=== PATIENT | female | born 1985 | race Caucasian/White ===

== ENCOUNTER 2016-11-14 08:07 | Day surgery (SDC) | payer BC, OTHER ==
[2012-04-15 15:09] VITALS: BP 114/68
[~2016-11-14 08:07] MED LIST: Depo-Medrol 40 MG/ML IM ONE; Lactated Ringers 1,000 ML IV ONE; Levofloxacin 500MG/100ML D5W 100 ML IV ONE; Sensorcaine 0.25% 10 ML IJ ONE; Sodium Chloride 0.9(Preservative Free) 10 ML IJ ONE
[2016-11-14] MEDS ORDERED: DIPRIVAN 200 MG/20 ML IV ONE (09:00)
--- NOTE | 2016-11-14 11:16 | XRAY ---
Indication: Caudal FLOR. Intraoperative fluoroscopy was provided for 14 seconds. 2 lateral digital spot images submitted for interpretation demonstrates contrast in the sacral spinal canal. Correlate with intraoperative findings/report.
--- NOTE | 2016-11-14 14:56 | XRAY ---
14 seconds fluoroscopy time in surgery for caudal FLOR.
== END 2016-11-14 10:10 | disposition home or self-care (01) ==
LOC: SDC-PAIN 08:07 → EDSTATUS 09:40 → SDC-PAIN 10:10
PROVIDERS: ATTEND Pain Medicine Interventional Pain Medicine
DX: M51.36 Other intervertebral disc degeneration, lumbar region (principal); M51.16 Intervertebral disc disorders with radiculopathy, lumbar region; M54.5 Low back pain; M54.6 Pain in thoracic spine
CPT/HCPCS: 64483; 64484; 72020; 77003; J1030; J1956; J2704

== ENCOUNTER 2017-01-01 10:55 | Emergency (ER) | payer BC, OTHER ==
[2017-01-01 11:52] VITALS: O2SAT 99
--- NOTE | 2017-01-01 12:01 | ERPHSYRPT ---
- History of Present Illness Time Seen by Provider: 01/01/17 11:54 Source: patient Exam Limitations: no limitations Patient Subjective Stated Complaint: PT REPORTS THAT LAST NIGHT SHE FELT HER HEART BEATING FAST-WOULD STOP WHEN SHE HELD BREATH-STATES THAT THIS AM SHE WOKE UP FEELING [id number] Triage Nursing Assessment: PT PALE WARME T DRY-RESP NONLABORED UPON ARRIVAL- LUNGS CLEAR ET EQUAL BILATERALLY-MOVING ALL EXTEMTIES WITH EASE-PT REPORTS TOES ARE NUMB-FULL ROM NOTED Physician History: The patient is a 31-year-old female complains that she was not feeling well last night. She states her heart was beating rapidly but then it was slow down. Today she feels weak. At times she feels like going to pass out. She says she is going to vomit but she is not nauseated. She says she sweaty. And then she is chilled. She says "I don't feel good". She states she had a panic attack 2 days ago. Her past medical history is significant for anxiety, depression, PTSD, and fibromyalgia. Timing/Duration: yesterday Severity: moderate Associated Symptoms: nausea, diaphoresis, weakness Allergies/Adverse Reactions: buspirone HCl [From BuSpar] Allergy (Mild, Verified 01/01/17 11:15) rash hives cefaclor [From Ceclor] Allergy (Mild, Verified 01/01/17 11:15) rash hives latex [Latex] Allergy (Mild, Verified 01/01/17 11:15) redness and swollen azatadine maleate [From Rynatan] Allergy (Verified 01/01/17 11:15) rash hives chlorpheniramine [From Rynatan] Allergy (Verified 01/01/17 11:15) chlorpheniramine tannate [From Rynatan] Allergy (Verified 01/01/17 11:15) phenylephrine tannate [From Rynatan] Allergy (Verified 01/01/17 11:15) pseudoephedrine sulfate [From Rynatan] Allergy (Verified 01/01/17 11:15) pyrilamine tannate [From Rynatan] Allergy (Verified 01/01/17 11:15) venlafaxine [From Effexor] Allergy (Verified 01/01/17 11:15) Home Medications: Multivitamin [Multivitamins] 2 each PO DAILY 03/07/16 [History] Ascorbic Acid 500 mg [Vitamin C 500 MG] 500 mg PO DAILY 08/22/16 [History] Cholecalciferol (Vitamin D3) [Vitamin D-400] 400 unit PO DAILY 08/22/16 [History ] Cyanocobalamin (Vitamin B-12) [Vitamin B-12] 1,500 mcg PO DAILY 08/22/16 [ History] Gabapentin [Neurontin] 300 mg PO .AM AND NOON 08/22/16 [History] Magnesium 500 mg PO DAILY 08/22/16 [History] Methocarbamol 500 mg [Robaxin 500 MG] 500 mg PO HS 08/22/16 [History] [place]-3 Fatty Acids/Fish Oil [Fish Oil 1,000 mg Softgel] 1 each PO DAILY [History] Paroxetine HCl [Paxil] 20 mg PO DAILY 08/22/16 [History] Gabapentin [Neurontin] 900 mg PO HS 11/27/16 [History] Hx Tetanus, Diphtheria Vaccination/Date Given: Yes Hx Influenza Vaccination/Date Given: No Hx Pneumococcal Vaccination/Date Given: No Immunizations Up to Date: Yes - Review of Systems Constitutional: No Fever, No Chills Eyes: No Symptoms Ears, Nose, & Throat: No Symptoms Respiratory: No Cough, No Dyspnea Cardiac: Palpitations Abdominal/Gastrointestinal: No Abdominal Pain, No Nausea, No Vomiting, No Diarrhea Genitourinary Symptoms: No Dysuria Musculoskeletal: No Back Pain, No Neck Pain Skin: No Rash Neurological: No Dizziness, No Focal Weakness, No Sensory Changes Psychological: No Symptoms Endocrine: No Symptoms Hematologic/Lymphatic: No Symptoms Immunological/Allergic: No Symptoms All Other Systems: Reviewed and Negative - Past Medical History Pertinent Past Medical History: Yes Neurological History: Migraines ENT History: No Pertinent History Cardiac History: No Pertinent History Respiratory History: No Pertinent History Endocrine Medical History: No Pertinent History Musculoskeletal History: Other GI Medical History: No Pertinent History History: No Pertinent History Psycho-Social History: Anxiety, Depression, Panic Disorder, Other Female Reproductive Disorders: No Pertinent History Other Medical History: SCOLIOSIS - Past Surgical History Past Surgical History: Yes Neuro Surgical History: No Pertinent History Cardiac: No Pertinent History Respiratory: No Pertinent History Gastrointestinal: Cholecystectomy Genitourinary: No Pertinent History Musculoskeletal: No Pertinent History Female Surgical History: Section, Tubal Ligation, Other Other Surgical History: LEEP - Social History Smoking Status: Current every day smoker How long have you smoked: 10 yrs Exposure to second hand smoke: Yes Drug Use: none Patient Lives Alone: No - Female History Hx Last Menstrual Period: DEPO Hx Now: No (pt unsure) - Nursing Vital Signs Nursing Vital Signs: Initial Vital Signs Temperature 99.4 F Temperature Source Oral Pulse Rate 80 Respiratory Rate 16 Blood Pressure [Right Arm] 118/81 Pain Intensity 0 - Physical Exam General Appearance: no apparent distress, alert Eye Exam: PERRL/EOMI, eyes nml inspection Ears, Nose, Throat Exam: normal ENT inspection, TMs normal, pharynx normal, moist mucous membranes Neck Exam: normal inspection, non-tender, supple, full range of motion Respiratory Exam: normal breath sounds, lungs clear, No respiratory distress Cardiovascular Exam: tachycardia, irregular Gastrointestinal/Abdomen Exam: soft, normal bowel sounds, No tenderness, No mass Pelvic Exam: not done Rectal Exam: not done Back Exam: normal inspection, normal range of motion, No CVA tenderness, No vertebral tenderness Neurologic Exam: alert, oriented x 3, cooperative, normal mood/affect, nml cerebellar function, nml station & gait, sensation nml, No motor deficits Skin Exam: diaphoresis Lymphatic Exam: No adenopathy SpO2 Interpretation: normal SpO2: 99 Oxygen Delivery: Room Air - Course EKG Interpreted by Me: Sinus Rhythm, NORMAL AXIS, NORMAL INTERVALS, NORMAL QRS, NORMAL ST-T - Radiology Exams Chest X-ray Interpretation: Teleradiologist Report, Negative (per Dr Chris) Ordered Tests: Active Orders 24 hr Category Date Time Status EKG-ER Only STAT Care 01/01/17 12:05 Active IV Insertion STAT Care 01/01/17 12:05 Active CHEST 2 VIEWS (PA AND LAT) Stat Exams 01/01/17 12:06 Completed CBC W DIFF Stat Lab 01/01/17 12:14 Completed CMP Stat Lab 01/01/17 12:14 Completed CULTURE,URINE Stat Lab 01/01/17 12:05 Received HCG QUALITATIVE,SERUM Stat Lab 01/01/17 12:14 Completed LIPASE Stat Lab 01/01/17 12:14 Completed TROPONIN Stat Lab 01/01/17 12:14 Completed TSH [TSH, 3RD Generation] Stat Lab 01/01/17 12:14 Completed UA W/ MICROSCOPIC Stat Lab 01/01/17 12:05 Completed Urine Triage Profile Stat Lab 01/01/17 12:05 Completed Medication Summary Discontinued Medications Generic Name Dose Route Start Last Admin Trade Name Jessica PRN Reason Stop Dose Admin Acetaminophen 650 mg 01/01/17 12:05 01/01/17 12:16 Tylenol 325 Mg PO 01/01/17 12:06 650 mg STAT ONE Administration Acetaminophen Confirm 01/01/17 12:13 Tylenol 325 Mg Administered 01/01/17 12:14 Dose 650 mg .ROUTE .STK-MED ONE Sodium Chloride 1,000 mls @ 999 mls/hr 01/01/17 12:05 01/01/17 12:16 Sodium Chloride 0.9% 1000 Ml IV 01/01/17 13:05 999 mls/hr .Q1H1M STA Administration Sodium Chloride Confirm 01/01/17 12:06 Sodium Chloride 0.9% 1000 Ml Administered 01/01/17 12:07 Dose 1,000 mls @ ud .ROUTE .STK-MED ONE Ketorolac Tromethamine 30 mg 01/01/17 12:05 01/01/17 12:16 Toradol 30 Mg Injection IV 01/01/17 12:06 30 mg STAT ONE Administration Ketorolac Tromethamine Confirm 01/01/17 12:13 Toradol 30 Mg Injection Administered 01/01/17 12:14 Dose 30 mg .ROUTE .STK-MED ONE Ondansetron HCl Confirm 01/01/17 12:06 Zofran 4 Mg/2 Ml Vial Administered 01/01/17 12:07 Dose 4 mg .ROUTE .STK-MED ONE Ondansetron HCl 4 mg 01/01/17 12:13 01/01/17 12:16 Zofran 4 Mg/2 Ml Vial IV 01/01/17 12:14 4 mg STAT ONE Administration Promethazine HCl 12.5 mg 01/01/17 13:17 01/01/17 13:18 Phenergan 25 Mg Inj IV 01/01/17 13:18 12.5 mg STAT ONE Administration Promethazine HCl Confirm 01/01/17 13:16 Phenergan 25 Mg Inj Administered 01/01/17 13:17 Dose 25 mg .ROUTE .STK-MED ONE Lab/Rad Data: Laboratory Result Diagrams 01/01/17 12:14 01/01/17 12:14 Laboratory Results 01/01/17 01/01/17 01/01/17 Range/Units 12:14 12:14 12:14 WBC (4.0-10.5) K/mm3 RBC (4.1-5.4) M/mm3 Hgb (12.0-16.0) gm/dl Hct (35-47) % MCV (78-100) fl MCH (26-32) pg MCHC (32-36) g/dl RDW (11.5-14.0) % Plt Count (150-450) K/mm3 MPV (6-9.5) fl Gran % (36.0-66.0) % Lymphocytes % (24.0-44.0) % Monocytes % (0.0-12.0) % Eosinophils % (0.00-5.0) % Basophils % (0.0-0.4) % Basophils # (0-0.4) Sodium 143 (136-145) mEq/L Potassium 3.7 (3.5-5.1) mEq/L Chloride 108 H (98-107) mEq/L Carbon Dioxide 22.6 (21-32) mEq/L Anion Gap 15.6 H (5-15) MEQ/L BUN 12 (9-20) mg/dL Creatinine 0.79 (0.55-1.30) mg/dl Estimated GFR > 60 ML/MIN Glucose 93 (70-110) MG/DL Calcium 8.9 (8.5-10.1) mg/dL Total Bilirubin 0.30 (0.2-1.0) mg/dL AST 18 (15-37) U/L ALT 16 (12-78) U/L Alkaline Phosphatase 66 (46-116) U/L Troponin I < 0.017 (0.000-0.056) ng/ml Serum Total Protein 7.3 (6.4-8.2) gm/dL Albumin 3.6 (3.4-5.0) g/dL Lipase 139 (73-393) U/L TSH 3rd Generation 1.341 (0.358-3.740) mIU/L Serum , Qual NEGATIVE (Negative) Ur Collection Type Urine Color (YELLOW) Urine Appearance (CLEAR) Urine pH (5-6) Ur Specific [place] (1.005-1.025) Urine Protein (Negative) Urine Glucose (UA) (NEGATIVE) mg/dL Urine Ketones (NEGATIVE) Urine Nitrite (NEGATIVE) Urine Bilirubin (NEGATIVE) Urine Urobilinogen (0-1) mg/dL Urine WBC (Auto) (NEGATIVE) Urine RBC (Auto) (0-5) Nomi/ul Urine Microscopic RBC (0-2) /HPF Urine Microscopic WBC (0-5) /HPF Ur Epithelial Cells (FEW) /HPF Urine Bacteria (NEGATIVE) /HPF Urine Opiates Level (NEGATIVE) Ur Methadone (NEGATIVE) Urine Barbiturates (NEGATIVE) Ur Phencyclidine (PCP) (NEGATIVE) Urine Amphetamine (NEGATIVE) U Benzodiazepine Level (NEGATIVE) Urine Cocaine (NEGATIVE) Urine Marijuana (THC) (NEGATIVE) Specimen Received 01/01/17 01/01/17 01/01/17 Range/Units 12:14 12:05 12:05 WBC 6.7 (4.0-10.5) K/mm3 RBC 4.62 (4.1-5.4) M/mm3 Hgb 13.4 (12.0-16.0) gm/dl Hct 41.4 (35-47) % MCV 89.6 (78-100) fl MCH 29.0 (26-32) pg MCHC 32.4 (32-36) g/dl RDW 14.7 H (11.5-14.0) % Plt Count 193 (150-450) K/mm3 MPV 12.4 H (6-9.5) fl Gran % 61.0 (36.0-66.0) % Lymphocytes % 26.6 (24.0-44.0) % Monocytes % 10.1 (0.0-12.0) % Eosinophils % 2.0 (0.00-5.0) % Basophils % 0.3 (0.0-0.4) % Basophils # 0.02 (0-0.4) Sodium (136-145) mEq/L Potassium (3.5-5.1) mEq/L Chloride (98-107) mEq/L Carbon Dioxide (21-32) mEq/L Anion Gap (5-15) MEQ/L BUN (9-20) mg/dL Creatinine (0.55-1.30) mg/dl Estimated GFR ML/MIN Glucose (70-110) MG/DL Calcium (8.5-10.1) mg/dL Total Bilirubin (0.2-1.0) mg/dL AST (15-37) U/L ALT (12-78) U/L Alkaline Phosphatase (46-116) U/L Troponin I (0.000-0.056) ng/ml Serum Total Protein (6.4-8.2) gm/dL Albumin (3.4-5.0) g/dL Lipase (73-393) U/L TSH 3rd Generation (0.358-3.740) mIU/L Serum , Qual (Negative) Ur Collection Type CLEAN CATCH Urine Color YELLOW (YELLOW) Urine Appearance CLEAR (CLEAR) Urine pH 6.0 (5-6) Ur Specific [place] 1.025 (1.005-1.025) Urine Protein NEGATIVE (Negative) Urine Glucose (UA) NEGATIVE (NEGATIVE) mg/dL Urine Ketones NEGATIVE (NEGATIVE) Urine Nitrite NEGATIVE (NEGATIVE) Urine Bilirubin NEGATIVE (NEGATIVE) Urine Urobilinogen 0.2 (0-1) mg/dL Urine WBC (Auto) TRACE (NEGATIVE) Urine RBC (Auto) SMALL (0-5) Nomi/ul Urine Microscopic RBC 5-10 (0-2) /HPF Urine Microscopic WBC 5-10 (0-5) /HPF Ur Epithelial Cells MODERATE (FEW) /HPF Urine Bacteria MODERATE (NEGATIVE) /HPF Urine Opiates Level NEG. (NEGATIVE) Ur Methadone NEG. (NEGATIVE) Urine Barbiturates NEG. (NEGATIVE) Ur Phencyclidine (PCP) NEG. (NEGATIVE) Urine Amphetamine NEG. (NEGATIVE) U Benzodiazepine Level NEG. (NEGATIVE) Urine Cocaine NEG. (NEGATIVE) Urine Marijuana (THC) NEG. (NEGATIVE) Specimen Received 01-01 1243 - Progress Progress: improved Counseled pt/family regarding: lab results, diagnosis, need for follow-up, rad results - Departure Time of Disposition: 13:53 Departure Disposition: Home Clinical Impression: Weakness Condition: Stable Critical Care Time: No Additional Instructions: Stay well hydrated. Follow up as needed. Take phenergan 25 mg every 8 hrs as needed for nausea. Prescriptions: Promethazine HCl 25 mg [Phenergan 25 mg] 25 mg PO Q8H PRN PRN #10 tablet PRN Reason: Nausea/Vomiting
[2017-01-01] MEDS ORDERED: TORAdol 30 mg Injection IV ONE (12:05)
[2017-01-01] MEDS ORDERED: TYLENOL 325 MG PO ONE (12:05)
[2017-01-01] MEDS ORDERED: Sodium Chloride 0.9% 1000 ML 1,000 ML IV STA (12:05)
[2017-01-01] MEDS ORDERED: Sodium Chloride 0.9% 1000 ML 1,000 ML ONE (12:06)
[2017-01-01] MEDS ORDERED: Zofran 4 MG/2 ML VIAL ONE (12:06)
[2017-01-01] MEDS ORDERED: TORAdol 30 mg Injection ONE (12:13)
[2017-01-01] MEDS ORDERED: Zofran 4 MG/2 ML VIAL IV ONE (12:13)
[2017-01-01] MEDS ORDERED: TYLENOL 325 MG ONE (12:13)
[2017-01-01 12:24] LABS: BASOPHIL % 0.3 % (0.0-0.4); Lymphocytes % 26.6 % (24.0-44.0); Mean Cell Volume 89.6 fl (78-100); Mean Platelet Volume 12.4 fl (6-9.5); Monocytes % 10.1 % (0.0-12.0); Platelet Count 193 K/mm3 (150-450); Red Blood Count 4.62 M/mm3 (4.1-5.4); Red Cell Distribution Width 14.7 % (11.5-14.0); White Blood Count 6.7 K/mm3 (4.0-10.5)
[2017-01-01 12:27] LABS: ALBUMIN 3.6 g/dL (3.4-5.0); ALKALINE PHOSPHATASE 66 U/L (46-116); ANION GAP 15.6 MEQ/L (5-15); BLOOD UREA NITROGEN 12 mg/dL (9-20); CHLORIDE 108 mEq/L (98-107); Carbon Dioxide 22.6 mEq/L (21-32); Glucose 93 MG/DL (70-110); LIPASE 139 U/L (73-393); Potassium 3.7 mEq/L (3.5-5.1); SGOT/AST 18 U/L (15-37); SGPT/ALT 16 U/L (12-78); SODIUM 143 mEq/L (136-145); Total Protein 7.3 gm/dL (6.4-8.2)
[2017-01-01 12:36] LABS: TROPONIN < 0.017 ng/ml (0.000-0.056)
[2017-01-01 12:38] LABS: COMPLETE URINE MICROSCOPIC? YES; Collection Type CLEAN CATCH
[2017-01-01 13:03] LABS: Bacteria MODERATE /HPF (NEGATIVE); Epithelial Cells MODERATE /HPF (FEW)
[2017-01-01 13:04] LABS: ADD URINE CULTURE? YES (NO)
[2017-01-01] MEDS ORDERED: Phenergan 25 MG INJ ONE (13:16)
[2017-01-01] MEDS ORDERED: Phenergan 25 MG INJ IV ONE (13:17)
--- NOTE | 2017-01-01 13:38 | XRAY ---
Indication: Chest pain and palpitations. Comparison: February 08, 2012. PA/lateral chest again demonstrates normal heart and lungs. Bony thorax intact with stable minimal vertebral wedging at the thoracolumbar junction.
[2017-01-01 13:57] VITALS: BP 127/67; PULSE 89
== END 2017-01-01 14:24 | disposition home or self-care (01) ==
LOC: ED 10:55
DX: R53.1 Weakness (principal)
CPT/HCPCS: 36000; 36415; 71020; 80053; 80307; 81000; 83690; 84443; 84484; 84703; 85025; 87086; 93005; 93041; 96360; 96374; 96375; 99284; J1885; J2405; J2550; A9270-GY

== ENCOUNTER 2017-06-23 11:00 | Emergency (ER) | payer OTHER ==
[2017-06-23] MEDS ORDERED: XYLOCAINE 1% HCL 20 ML MDV IJ ONE (11:19)
--- NOTE | 2017-06-23 11:22 | ERPHSYRPT ---
- History of Present Illness Time Seen by Provider: 06/23/17 11:20 Source: patient Exam Limitations: no limitations Physician History: tender sts on back since Saturday, mild ache, no injury, not dm, no fever, no draining, nonpleuritic Allergies/Adverse Reactions: buspirone HCl [From BuSpar] Allergy (Mild, Verified 06/23/17 11:19) rash hives cefaclor [From Ceclor] Allergy (Mild, Verified 06/23/17 11:19) rash hives latex [Latex] Allergy (Mild, Verified 06/23/17 11:19) redness and swollen azatadine maleate [From Rynatan] Allergy (Verified 06/23/17 11:19) rash hives chlorpheniramine [From Rynatan] Allergy (Verified 06/23/17 11:19) chlorpheniramine tannate [From Rynatan] Allergy (Verified 06/23/17 11:19) phenylephrine tannate [From Rynatan] Allergy (Verified 06/23/17 11:19) pseudoephedrine sulfate [From Rynatan] Allergy (Verified 06/23/17 11:19) pyrilamine tannate [From Rynatan] Allergy (Verified 06/23/17 11:19) venlafaxine [From Effexor] Allergy (Verified 06/23/17 11:19) Home Medications: Multivitamin [Multivitamins] 2 each PO DAILY 03/07/16 [History] Ascorbic Acid 500 mg [Vitamin C 500 MG] 500 mg PO DAILY 08/22/16 [History] Cholecalciferol (Vitamin D3) [Vitamin D-400] 400 unit PO DAILY 08/22/16 [History ] Cyanocobalamin (Vitamin B-12) [Vitamin B-12] 1,500 mcg PO DAILY 08/22/16 [ History] [place]-3 Fatty Acids/Fish Oil [Fish Oil 1,000 mg Softgel] 1 each PO DAILY [History] Diclofenac Sodium [Voltaren] 75 mg PO BID 06/23/17 [History] Tizanidine HCl 2 mg PO TID 06/23/17 [History] Hx Tetanus, Diphtheria Vaccination/Date Given: Yes Hx Influenza Vaccination/Date Given: No Hx Pneumococcal Vaccination/Date Given: No - Review of Systems Constitutional: No Fever Respiratory: No Symptoms Skin: Skin Lesions Neurological: No Dizziness - Past Medical History Pertinent Past Medical History: Yes Neurological History: Migraines ENT History: No Pertinent History Cardiac History: No Pertinent History Respiratory History: No Pertinent History Endocrine Medical History: No Pertinent History Musculoskeletal History: Other GI Medical History: No Pertinent History History: No Pertinent History Psycho-Social History: Anxiety, Depression, Panic Disorder, Other Female Reproductive Disorders: No Pertinent History Other Medical History: SCOLIOSIS - Past Surgical History Past Surgical History: Yes Neuro Surgical History: No Pertinent History Cardiac: No Pertinent History Respiratory: No Pertinent History Gastrointestinal: Cholecystectomy Genitourinary: No Pertinent History Musculoskeletal: No Pertinent History Female Surgical History: Section, Tubal Ligation, Other Other Surgical History: LEEP - Social History Smoking Status: Current every day smoker How long have you smoked: 10 yrs Exposure to second hand smoke: Yes Drug Use: none Patient Lives Alone: No - Nursing Vital Signs Nursing Vital Signs: Initial Vital Signs Temperature 97.9 F 06/23/17 11:18 Pulse Rate 106 H 06/23/17 11:18 Respiratory Rate 16 06/23/17 11:18 Blood Pressure 120/66 06/23/17 11:18 O2 Sat by Pulse Oximetry 98 06/23/17 11:18 Pain Scale Pain Intensity 5 - Physical Exam General Appearance: no apparent distress Respiratory Exam: normal breath sounds, No chest tenderness Back Exam: other (1 to 2 cm fluc mass w/ border erythema mid right back, possible mole noticed, no streaks, +tender) Extremity Exam: normal range of motion Neurologic Exam: alert, oriented x 3, cooperative Skin Exam: warm, dry Comments: 06/23/17 11:22 pt consents to I and D Procedures - Incision and Drainage Timeout: Performed Site: back Anesthesia: 1% Lidocaine cc's of anesthesia: 2 Blade Size: 11 I & D Procedure: betadine prep Results: small amount pus - Course Nursing assessment & vital signs reviewed: Yes Ordered Tests: Medication Summary Discontinued Medications Generic Name Dose Route Start Last Admin Trade Name Freq PRN Reason Stop Dose Admin Lidocaine HCl 5 ml 06/23/17 11:19 06/23/17 11:33 Xylocaine 1% Hcl 20 Ml Mdv IJ 06/23/17 11:20 5 ml STAT ONE Administration Lidocaine HCl Confirm 06/23/17 11:30 Xylocaine 1% Hcl 20 Ml Mdv Administered 06/23/17 11:31 Dose 20 ml .ROUTE .STK-MED ONE - Progress Progress: improved Progress Note: 06/23/17 11:43 pt improved, differential d/w pt as cancer 06/23/17 11:43 Discussed with : Evangelista Will see patient in: office Counseled pt/family regarding: diagnosis, need for follow-up - Departure Time of Disposition: 11:44 Departure Disposition: Home Clinical Impression: Abscess Condition: Stable Critical Care Time: No Referrals: JUSTUS FREGOSO [Primary Care Provider] - Additional Instructions: cleocin, motrin, warm compresses, return if worse, see your doctor
[2017-06-23] MEDS ORDERED: XYLOCAINE 1% HCL 20 ML MDV ONE (11:30)
[2017-06-23] MEDS ORDERED: BACIGUENT PACKET TP ONE (11:50)
[2017-06-23 11:54] VITALS: BP 105/64; PULSE 100; O2SAT 97
[2017-06-23] MEDS ORDERED: BACIGUENT PACKET ONE (12:03)
== END 2017-06-23 11:54 | disposition home or self-care (01) ==
LOC: ED 11:00
PROC: 0H96XZZ Drainage of Back Skin, External Approach (ICD-10-PCS; principal; 2017-06-23)
DX: L02.212 Cutaneous abscess of back [any part, except buttock and flank] (principal)
CPT/HCPCS: 10060; 99283; A9270-GY

== ENCOUNTER 2019-07-23 11:54 | Emergency (ER) | payer OTHER ==
[2019-07-23] MEDS ORDERED: Pepcid 20 MG VIAL IV ONE ×2 (12:36→13:03)
[2019-07-23] MEDS ORDERED: Sodium Chloride 0.9% 1000 ML 1,000 ML IV STA ×2 (12:36→14:22)
[2019-07-23] MEDS ORDERED: Zofran 4 MG/2 ML VIAL IV ONE (12:36)
[2019-07-23] MEDS ORDERED: MORPHINE SULFATE 4 MG INJ IV ONE (12:36)
--- NOTE | 2019-07-23 12:38 | ERPHSYRPT ---
- History of Present Illness Time Seen by Provider: 07/23/19 12:00 Historian: patient Exam Limitations: no limitations Patient Subjective Stated Complaint: PT states "I have been feeling bad since last night and everything I put in my mouth comes right back up or out in diarrhea." Triage Nursing Assessment: Pt presented alert and oriented X 3,skin pwd Pt ambulates with an upright steady gait, able to speak in clear full sentences Pt in no apprent respiratory distress. Physician History: Patient has had vomiting and diarrhea since last evening with abdominal cramping. Patient's abdominal pain is more to the left lower side of her abdomen at this time. Timing/Duration: yesterday Activities at Onset: none Quality: cramping Abdominal Pain Onset Location: generalized abdomen Pain Radiation: LLQ Severity of Pain-Max: moderate Severity of Pain-Current: moderate Modifying Factors: Worsens With: eating Associated Symptoms: diarrhea, fatigue, nausea, vomiting, No back, No chest pain , No diaphoresis, No fever/chills, No headache, No heartburn, No loss of appetite, No neck pain, No rash, No syncope, No weakness Previous symptoms: no prior history, no recent treatment Allergies/Adverse Reactions: buspirone HCl [From BuSpar] Allergy (Mild, Verified 06/23/17 11:19) rash hives cefaclor [From Ceclor] Allergy (Mild, Verified 06/23/17 11:19) rash hives latex [Latex] Allergy (Mild, Verified 06/23/17 11:19) redness and swollen azatadine maleate [From Rynatan] Allergy (Verified 06/23/17 11:19) rash hives chlorpheniramine [From Rynatan] Allergy (Verified 06/23/17 11:19) chlorpheniramine tannate [From Rynatan] Allergy (Verified 06/23/17 11:19) phenylephrine tannate [From Rynatan] Allergy (Verified 06/23/17 11:19) pseudoephedrine sulfate [From Rynatan] Allergy (Verified 06/23/17 11:19) pyrilamine tannate [From Rynatan] Allergy (Verified 06/23/17 11:19) venlafaxine [From Effexor] Allergy (Verified 06/23/17 11:19) Home Medications: Multivitamin [Multivitamins] 2 each PO DAILY 03/07/16 [History] Ascorbic Acid 500 mg [Vitamin C 500 MG] 500 mg PO DAILY 08/22/16 [History] Cholecalciferol (Vitamin D3) [Vitamin D-400] 400 unit PO DAILY 08/22/16 [History ] Cyanocobalamin (Vitamin B-12) [Vitamin B-12] 1,500 mcg PO DAILY 08/22/16 [ History] [place]-3 Fatty Acids/Fish Oil [Fish Oil 1,000 mg Softgel] 1 each PO DAILY [History] Diclofenac Sodium [Voltaren] 75 mg PO BID 06/23/17 [History] Tizanidine HCl 2 mg PO TID 06/23/17 [History] Hx Tetanus, Diphtheria Vaccination/Date Given: Yes Hx Influenza Vaccination/Date Given: No Hx Pneumococcal Vaccination/Date Given: No Immunizations Up to Date: Yes - Review of Systems Constitutional: Fatigue, No Fever, No Chills Eyes: No Eye Pain, No Vision Changes Ears, Nose, & Throat: No Nose Congestion, No Mouth Pain, No Throat Pain, No Throat Swelling Respiratory: No Cough, No Dyspnea Cardiac: No Chest Pain, No Edema, No Syncope Abdominal/Gastrointestinal: Abdominal Pain, Nausea, Vomiting, Diarrhea, No Hematemesis, No Hematochezia, No Melena Genitourinary Symptoms: No Dysuria, No Frequency, No Hematuria, No Flank Pain Musculoskeletal: No Back Pain, No Neck Pain Skin: No Induration, No Pruritis, No Rash Neurological: Headache, No Dizziness, No Focal Weakness, No Parasthesia, No Sensory Changes, No Tremors, No Vertigo Psychological: No Emotional Lability Endocrine: No Polyuria, No Excessive Sweating Hematologic/Lymphatic: No Easy Bleeding, No Easy Bruising All Other Systems: Reviewed and Negative - Past Medical History Pertinent Past Medical History: Yes Neurological History: Migraines ENT History: No Pertinent History Cardiac History: Arrhythmia Respiratory History: No Pertinent History Endocrine Medical History: No Pertinent History Musculoskeletal History: Fibromyalgia, Osteoarthritis, Other GI Medical History: No Pertinent History History: No Pertinent History Psycho-Social History: Anxiety, Depression, Panic Disorder, Other Female Reproductive Disorders: No Pertinent History Other Medical History: PATIENT REPORTS ABNORMAL HEART BEAT THAT "JUST HAPPENS" BUT DOESN'T TAKE MEDICATIONS OR SEE A SPECIALIST. 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 PATIENT REPORTS ARTHRITIS IN 85% OF MY BODY. - Past Surgical History Past Surgical History: Yes Neuro Surgical History: No Pertinent History Cardiac: No Pertinent History Respiratory: No Pertinent History Gastrointestinal: Cholecystectomy Genitourinary: No Pertinent History Musculoskeletal: No Pertinent History Female Surgical History: Hysterectomy, Section, Tubal Ligation, Other Other Surgical History: LEEP - Social History Smoking Status: Current every day smoker How long have you smoked: years Exposure to second hand smoke: Yes Drug Use: none Patient Lives Alone: No - Female History Hx Last Menstrual Period: hysterectomy Hx Now: No - Nursing Vital Signs Nursing Vital Signs: Initial Vital Signs Temperature 99.5 F 07/23/19 12:02 Pulse Rate 130 H 07/23/19 12:02 Respiratory Rate 24 07/23/19 12:02 Blood Pressure 129/86 07/23/19 12:02 O2 Sat by Pulse Oximetry 98 07/23/19 12:02 Pain Scale Pain Intensity 2 - Physical Exam General Appearance: no apparent distress, alert Eye Exam: PERRL/EOMI, eyes nml inspection, No scleral icterus, No pale conjunctivae Ears, Nose, Throat Exam: normal ENT inspection, TMs normal, pharynx normal, moist mucous membranes Neck Exam: normal inspection, non-tender, supple, full range of motion, No meningismus, No Brudzinski, No Kernig's, No lymphadenopathy Respiratory Exam: normal breath sounds, lungs clear, airway intact, No respiratory distress, No diminished breath sounds, No accessory muscle use, No crackles/rales, No rhonchi, No wheezing, No stridor Cardiovascular Exam: regular rate/rhythm, normal heart sounds, normal peripheral pulses, capillary refill <2 sec Gastrointestinal/Abdomen Exam: soft, normal bowel sounds, No tenderness, No distention, No mass, No guarding, No rebound Back Exam: normal inspection, normal range of motion, No CVA tenderness, No vertebral tenderness Extremity Exam: normal inspection, normal range of motion, pelvis stable Neurologic Exam: alert, oriented x 3, cooperative, 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, normal mood/affect, nml cerebellar function, sensation nml, No motor deficits Skin Exam: normal color, warm, dry, No petechiae, No jaundice, No cyanosis SpO2 Interpretation: normal SpO2: 98 O2 Delivery: Room Air - Course Nursing assessment & vital signs reviewed: Yes Ordered Tests: Active Orders 24 hr Category Date Time Status IV Insertion STAT Care 07/23/19 12:36 Active AMYLASE Stat Lab 07/23/19 12:20 Completed CBC W DIFF Stat Lab 07/23/19 12:20 Completed CMP Stat Lab 07/23/19 12:20 Completed LIPASE Stat Lab 07/23/19 12:20 Completed Lactic Acid Stat Lab 07/23/19 12:40 Completed PROTIME WITH INR Stat Lab 07/23/19 12:20 Completed UA W/RFX UR CULTURE Stat Lab 07/23/19 12:50 Completed Medication Summary Discontinued Medications Generic Name Dose Route Start Last Admin Trade Name Freq PRN Reason Stop Dose Admin Famotidine 20 mg 07/23/19 12:36 07/23/19 13:12 Pepcid 20 Mg Vial IV 07/23/19 12:37 20 mg STAT ONE Administration Famotidine Confirm 07/23/19 13:03 Pepcid 20 Mg Vial Administered 07/23/19 13:04 Dose 20 mg IV .STK-MED ONE Sodium Chloride 1,000 mls @ 999 mls/hr 07/23/19 12:36 07/23/19 14:18 Sodium Chloride 0.9% 1000 Ml IV 07/23/19 13:36 Infused .Q1H1M STA Infusion Sodium Chloride Confirm 07/23/19 13:03 Sodium Chloride 0.9% 1000 Ml Administered 07/23/19 13:04 Dose 1,000 mls @ ud .ROUTE .STK-MED ONE Sodium Chloride 1,000 mls @ 999 mls/hr 07/23/19 14:22 07/23/19 16:13 Sodium Chloride 0.9% 1000 Ml IV 07/23/19 15:22 Infused .Q1H1M STA Infusion Sodium Chloride Confirm 07/23/19 14:32 Sodium Chloride 0.9% 1000 Ml Administered 07/23/19 14:33 Dose 1,000 mls @ ud .ROUTE .STK-MED ONE Ketorolac Tromethamine 30 mg 07/23/19 14:18 07/23/19 14:34 Toradol 30 Mg Injection IV 07/23/19 14:19 30 mg STAT ONE Administration Ketorolac Tromethamine Confirm 07/23/19 14:32 Toradol 30 Mg Injection Administered 07/23/19 14:33 Dose 30 mg .ROUTE .STK-MED ONE Morphine Sulfate 4 mg 07/23/19 12:36 07/23/19 13:31 Morphine Sulfate 4 Mg Inj IV 07/23/19 12:37 Not Given STAT ONE Morphine Sulfate Confirm 07/23/19 13:03 Morphine Sulfate 4 Mg Inj Administered 07/23/19 13:04 Dose 4 mg .ROUTE .STK-MED ONE Ondansetron HCl 4 mg 07/23/19 12:36 07/23/19 13:11 Zofran 4 Mg/2 Ml Vial IV 07/23/19 12:37 4 mg STAT ONE Administration Ondansetron HCl Confirm 07/23/19 13:03 Zofran 4 Mg/2 Ml Vial Administered 07/23/19 13:04 Dose 4 mg .ROUTE .STK-MED ONE Lab/Rad Data: Laboratory Result Diagrams 07/23/19 12:20 07/23/19 12:20 Laboratory Results 07/23/19 07/23/19 07/23/19 Range/Units 12:50 12:40 12:20 WBC (4.0-10.5) K/mm3 RBC (4.1-5.4) M/mm3 Hgb (12.0-16.0) gm/dl Hct (35-47) % MCV (78-100) fl MCH (26-32) pg MCHC (32-36) g/dl RDW (11.5-14.0) % Plt Count (150-450) K/mm3 MPV (6-9.5) fl Gran % (36.0-66.0) % Eos # (Auto) (0-0.5) Absolute Lymphs (auto) (1.0-4.6) Absolute Monos (auto) (0.0-1.3) Lymphocytes % (24.0-44.0) % Monocytes % (0.0-12.0) % Eosinophils % (0.00-5.0) % Basophils % (0.0-0.4) % Absolute Granulocytes (1.4-6.9) Basophils # (0-0.4) PT 12.3 (9.95-12.35) SECONDS INR 1.09 (0.8-3.0) Sodium (137-145) mmol/L Potassium (3.5-5.1) mmol/L Chloride (98-107) mmol/L Carbon Dioxide (22-30) mmol/L Anion Gap (5-15) MEQ/L BUN (7-17) mg/dL Creatinine (0.52-1.04) mg/dL Estimated GFR ML/MIN Glucose (74-106) mg/dL Lactic Acid 2.0 (0.4-2.0) Calcium (8.4-10.2) mg/dL Total Bilirubin (0.2-1.3) mg/dL AST (14-36) U/L ALT (0-35) U/L Alkaline Phosphatase (38-126) U/L Serum Total Protein (6.3-8.2) g/dL Albumin (3.5-5.0) g/dL Amylase (30-110) U/L Lipase (23-300) U/L Urine Color YELLOW (YELLOW) Urine Appearance CLEAR (CLEAR) Urine pH 6.0 (5-6) Ur Specific [address] 1.029 (1.005-1.025) Urine Protein NEGATIVE (Negative) Urine Ketones NEGATIVE (NEGATIVE) Urine Blood NEGATIVE (0-5) Nomi/ul Urine Nitrite NEGATIVE (NEGATIVE) Urine Bilirubin NEGATIVE (NEGATIVE) Urine Urobilinogen 2 (0-1) mg/dL Ur Leukocyte Esterase NEGATIVE (NEGATIVE) Urine WBC (Auto) 0-2 (0-5) /HPF Urine RBC (Auto) 3-5 (0-2) /HPF U Epithel Cells (Auto) NONE (FEW) /HPF Urine Bacteria (Auto) RARE (NEGATIVE) /HPF Urine Mucus (Auto) SLIGHT (NEGATIVE) /HPF Urine Culture Reflexed NO (NO) Urine Glucose NEGATIVE (NEGATIVE) mg/dL Slides for Path Review 07/23/19 07/23/19 Range/Units 12:20 12:20 WBC 8.8 (4.0-10.5) K/mm3 RBC 4.55 (4.1-5.4) M/mm3 Hgb 13.6 (12.0-16.0) gm/dl Hct 41.0 (35-47) % MCV 90.1 (78-100) fl MCH 29.9 (26-32) pg MCHC 33.2 (32-36) g/dl RDW 13.8 (11.5-14.0) % Plt Count 180 (150-450) K/mm3 MPV 12.0 H (6-9.5) fl Gran % 87.6 H (36.0-66.0) % Eos # (Auto) 0.07 (0-0.5) Absolute Lymphs (auto) 0.48 L (1.0-4.6) Absolute Monos (auto) 0.54 (0.0-1.3) Lymphocytes % 5.4 L (24.0-44.0) % Monocytes % 6.1 (0.0-12.0) % Eosinophils % 0.8 (0.00-5.0) % Basophils % 0.1 (0.0-0.4) % Absolute Granulocytes 7.74 H (1.4-6.9) Basophils # 0.01 (0-0.4) PT (9.95-12.35) SECONDS INR (0.8-3.0) Sodium 136 L (137-145) mmol/L Potassium 3.7 (3.5-5.1) mmol/L Chloride 105 (98-107) mmol/L Carbon Dioxide 23 (22-30) mmol/L Anion Gap 12.4 (5-15) MEQ/L BUN 15 (7-17) mg/dL Creatinine 0.65 (0.52-1.04) mg/dL Estimated GFR > 60.0 ML/MIN Glucose 122 H (74-106) mg/dL Lactic Acid (0.4-2.0) Calcium 8.8 (8.4-10.2) mg/dL Total Bilirubin 0.60 (0.2-1.3) mg/dL AST 25 (14-36) U/L ALT 23 (0-35) U/L Alkaline Phosphatase 62 (38-126) U/L Serum Total Protein 7.1 (6.3-8.2) g/dL Albumin 4.1 (3.5-5.0) g/dL Amylase 57 (30-110) U/L Lipase 65 (23-300) U/L Urine Color (YELLOW) Urine Appearance (CLEAR) Urine pH (5-6) Ur Specific [address] (1.005-1.025) Urine Protein (Negative) Urine Ketones (NEGATIVE) Urine Blood (0-5) Nomi/ul Urine Nitrite (NEGATIVE) Urine Bilirubin (NEGATIVE) Urine Urobilinogen (0-1) mg/dL Ur Leukocyte Esterase (NEGATIVE) Urine WBC (Auto) (0-5) /HPF Urine RBC (Auto) (0-2) /HPF U Epithel Cells (Auto) (FEW) /HPF Urine Bacteria (Auto) (NEGATIVE) /HPF Urine Mucus (Auto) (NEGATIVE) /HPF Urine Culture Reflexed (NO) Urine Glucose (NEGATIVE) mg/dL Slides for Path Review YES - Progress Progress: improved Progress Note: 07/23/19 15:17 Vitals are improving as tachycardia has decreased with IV hydration. Patient has no nausea,vomiting or abdominal pain but had one episode of diarrhea 07/23/19 16:47 Patient feels much better and my repeat pulse is at 96 on my recheck. Patient has no pain on repeat abdominal examination and no further episodes of diarrhea or vomiting with no symptoms of nausea. 07/23/19 16:51 Patient does not require inpatient admission for any further evaluation, monitoring and treatment. Counseled pt/family regarding: lab results, diagnosis, need for follow-up - Departure Departure Disposition: Home Clinical Impression: Dehydration, Nausea and vomiting in adult Diarrhea Qualifiers: Diarrhea type: unspecified type Qualified Code(s): R19.7 - Diarrhea, unspecified Condition: Good Critical Care Time: No Referrals: JUSTUS FREGOSO [Primary Care Provider] - 07/27/19 Instructions: Diarrhea and Traveler's Diarrhea -- Adult, Nausea -- Adult, Vomiting -- Adult, Dehydration, Adult (DC) Additional Instructions: Discharge/Care Plan AMADA MARTINEZAN was seen on 07/23/19 in the Emergency Room. The patient was counseled regarding Diagnosis,Lab results, Imaging studies, need for follow up and when to return to the Emergency Room. Prescriptions given: Phenergan and Lomotil Discharge Note I have spoken with the patient. I have explained the patient's condition, diagnosis and treatment plan based on the information available to me at this time. I have answered the patient's questions and addressed any concerns. The patient has a good understanding of the patient's diagnosis, condition and treatment plan as can be expected at this point. The vital signs have been stable. The patient's condition is stable and appropriate for discharge from the emergency department. The patient will pursue further outpatient evaluation with the primary care physician or other designated or consulting physician as outlined in the discharge instructions. The patient is agreeable to this plan of care and follow -up instructions have been explained in detail. The patient has received these instruction. The patient is aware that any significant change in condition or worsening of symptoms should prompt an immediate return to this or the closest emergency department or call 911. Forms: Work/School Release Form Prescriptions: Promethazine HCl 25 mg [Phenergan 25 mg] 25 mg PO Q6H PRN PRN #12 tablet PRN Reason: Nausea Diphenoxylate HCl/Atropine [Lomotil Tablet] 1 each PO TID PRN #10 tablet PRN Reason: Diarrhea
[2019-07-23 12:43] LABS: Absolute Neutrophil Ct (ANC) 7.74 (1.4-6.9); BASOPHIL % 0.1 % (0.0-0.4); Basophil (Absolute #) 0.01 (0-0.4); Eosinophil % 0.8 % (0.00-5.0); Eosinophil (Absolute #) 0.07 (0-0.5); Hemoglobin 13.6 gm/dl (12.0-16.0); Lymphocyte (Absolute #) 0.48 (1.0-4.6); Lymphocytes % 5.4 % (24.0-44.0); Mean Cell Volume 90.1 fl (78-100); Mean Corpuscular Hemoglobin 29.9 pg (26-32); Mean Corpuscular Hgb Concent. 33.2 g/dl (32-36); Monocyte (Absolute #) 0.54 (0.0-1.3); Monocytes % 6.1 % (0.0-12.0); Neutrophil % 87.6 % (36.0-66.0); Platelet Count 180 K/mm3 (150-450); Red Blood Count 4.55 M/mm3 (4.1-5.4); Red Cell Distribution Width 13.8 % (11.5-14.0); White Blood Count 8.8 K/mm3 (4.0-10.5)
[2019-07-23 12:53] LABS: ALBUMIN 4.1 g/dL (3.5-5.0); ALKALINE PHOSPHATASE 62 U/L (38-126); AMYLASE 57 U/L (30-110); ANION GAP 12.4 MEQ/L (5-15); BLOOD UREA NITROGEN 15 mg/dL (7-17); CHLORIDE 105 mmol/L (98-107); Calcium 8.8 mg/dL (8.4-10.2); Carbon Dioxide 23 mmol/L (22-30); Creatinine 1 0.65 mg/dL (0.52-1.04); Glucose 122 mg/dL (74-106); LIPASE 65 U/L (23-300); Potassium 3.7 mmol/L (3.5-5.1); SGOT/AST 25 U/L (14-36); SGPT/ALT 23 U/L (0-35); SODIUM 136 mmol/L (137-145); Total Protein 7.1 g/dL (6.3-8.2)
[2019-07-23] MEDS ORDERED: Zofran 4 MG/2 ML VIAL ONE (13:03)
[2019-07-23] MEDS ORDERED: MORPHINE SULFATE 4 MG INJ ONE (13:03)
[2019-07-23] MEDS ORDERED: Sodium Chloride 0.9% 1000 ML 1,000 ML ONE ×2 (13:03→14:32)
[2019-07-23 13:07] LABS: Appearance CLEAR (CLEAR); Bacteria RARE /HPF (NEGATIVE); Bilirubin NEGATIVE (NEGATIVE); Blood NEGATIVE Ery/ul (0-5); Glucose NEGATIVE (NEGATIVE); Ketones NEGATIVE (NEGATIVE); Leukocyte Esterase NEGATIVE (NEGATIVE); Mucus SLIGHT /HPF (NEGATIVE); Nitrite NEGATIVE (NEGATIVE); Protein,Urine Dip NEGATIVE (Negative); Specific Gravity 1.029 (1.005-1.025); Urobilinogen 2 mg/dL (0-1); WBC 0-2 /HPF (0-5)
[2019-07-23 13:29] LABS: INR 1.09 (0.8-3.0); PROTIME 12.3 SECONDS (9.95-12.35)
[2019-07-23] MEDS ORDERED: TORAdol 30 mg Injection IV ONE (14:18)
[2019-07-23] MEDS ORDERED: TORAdol 30 mg Injection ONE (14:32)
[2019-07-23 14:34] LABS: Slide Review 1 YES
[2019-07-23 15:17] VITALS: O2SAT 98
[2019-07-23 17:06] VITALS: BP 104/61; PULSE 108
== END 2019-07-23 17:00 | disposition home or self-care (01) ==
LOC: ED 11:54
DX: E86.0 Dehydration (principal); R11.2 Nausea with vomiting, unspecified; R19.7 Diarrhea, unspecified
CPT/HCPCS: 36000; 36415; 80053; 81001; 82150; 83605; 83690; 85025; 85610; 96360; 96361; 96374; 96375; 99284; J1885; J2270; J2405

== ENCOUNTER 2019-07-25 00:32 | Emergency (ER) | payer OTHER ==
[2019-07-25] MEDS ORDERED: Sodium Chloride 0.9% 1000 ML 1,000 ML IV STA (00:59)
[2019-07-25] MEDS ORDERED: Sodium Chloride 0.9% 1000 ML 1,000 ML ONE (01:02)
[2019-07-25 01:53] LABS: ALBUMIN 3.8 g/dL (3.5-5.0); ALKALINE PHOSPHATASE 85 U/L (38-126); AMYLASE 48 U/L (30-110); ANION GAP 11.2 MEQ/L (5-15); BLOOD UREA NITROGEN 7 mg/dL (7-17); CHLORIDE 110 mmol/L (98-107); CK-Creatinine Phosphokinase 71 U/L (30-135); Calcium 8.3 mg/dL (8.4-10.2); Carbon Dioxide 22 mmol/L (22-30); Creatinine 1 0.57 mg/dL (0.52-1.04); Glucose 95 mg/dL (74-106); LIPASE 56 U/L (23-300); NT PRO BNP 324 pg/mL (0-450); Potassium 3.3 mmol/L (3.5-5.1); SGOT/AST 24 U/L (14-36); SGPT/ALT 21 U/L (0-35); SODIUM 140 mmol/L (137-145)
[2019-07-25 01:56] LABS: Appearance CLEAR (CLEAR); Bilirubin NEGATIVE (NEGATIVE); Glucose NEGATIVE (NEGATIVE); Ketones NEGATIVE (NEGATIVE); Leukocyte Esterase NEGATIVE (NEGATIVE); Nitrite NEGATIVE (NEGATIVE); Protein,Urine Dip NEGATIVE (Negative); Specific Gravity 1.018 (1.005-1.025); Urobilinogen 4 mg/dL (0-1)
[2019-07-25 01:57] LABS: Amphetamine,Urine NEGATIVE (NEGATIVE); Barbiturate,Urine NEGATIVE (NEGATIVE); Benzodiazepine,Urine NEGATIVE (NEGATIVE); Cocaine,Urine NEGATIVE (NEGATIVE); Methadone,Urine NEGATIVE (NEGATIVE); Opiate,Urine NEGATIVE (NEGATIVE); PCP,Urine NEGATIVE (NEGATIVE); THC,Urine NEGATIVE (NEGATIVE)
[2019-07-25 01:57] LABS: Bacteria NONE SEEN /HPF (NEGATIVE); Blood NEGATIVE Ery/ul (0-5); Epithelial Cells RARE /HPF (FEW); RBC NONE SEEN /HPF (0-2); WBC 0-2 /HPF (0-5)
[2019-07-25 01:57] LABS: Absolute Neutrophil Ct (ANC) 2.76 (1.4-6.9); BASOPHIL % 0.2 % (0.0-0.4); Basophil (Absolute #) 0.01 (0-0.4); Eosinophil % 3.6 % (0.00-5.0); Hematocrit 38.4 % (35-47); Hemoglobin 12.6 gm/dl (12.0-16.0); Lymphocyte (Absolute #) 1.94 (1.0-4.6); Mean Cell Volume 90.8 fl (78-100); Mean Corpuscular Hemoglobin 29.8 pg (26-32); Mean Corpuscular Hgb Concent. 32.8 g/dl (32-36); Mean Platelet Volume 12.2 fl (7.5-11.0); Monocyte (Absolute #) 0.64 (0.0-1.3); Monocytes % 11.5 % (0.0-12.0); Neutrophil % 49.7 % (36.0-66.0); Platelet Count 181 K/mm3 (150-450); Red Blood Count 4.23 M/mm3 (4.1-5.4); Red Cell Distribution Width 13.8 % (11.5-14.0); White Blood Count 5.6 K/mm3 (4.0-10.5)
[2019-07-25 01:58] LABS: INR 1.04 (0.8-3.0); PROTIME 11.8 SECONDS (9.95-12.35)
[2019-07-25 03:24] LABS: INFLUENZA A NEGATIVE (NEGATIVE); INFLUENZA B NEGATIVE (NEGATIVE); RESPIRATORY SYNCTIAL VIRUS NEGATIVE (Negative)
[2019-07-25 03:29] LABS: Slide Review 1 YES
--- NOTE | 2019-07-25 04:47 | ERPHSYRPT ---
- History of Present Illness Exam Limitations: no limitations Patient Subjective Stated Complaint: pt c/o mid sternal chest pain, radiating to lt arm and up in lt side of neck, c/o lt arm numbness. Triage Nursing Assessment: pt c/o chest pain that started at 2330, radiating down left arm and into lt upper neck area, pt denies any nausea, vomiting, diaphoresis. Pt rates pain a 4 now, but pain was worse at home prior to arrival. Pt states, "my HR was fast at home, felt like it was beating out of my chest". B/p at home 140/90, and 145/95. Pt was seen her yesterday for flu. Physician History: patient is a 34-year-old female who presents with a complaint of chest pain shortness of breath palpitations. She had an exploding headache tonight. The symptoms started 2 hours prior to arrival she was seen yesterday or the day before it is in the ER diagnosed with flu however no swab was done she also has a history of panic attacks and anxiety. Timing/Duration: day(s) (3), worse Activities at Onset: none Quality: pressure, tightness Location: substernal Chest Pain Radiation: jaw, neck, arm Severity of Pain-Max: moderate Severity of Pain-Current: moderate Modifying Factors: Improves With: nothing Associated Symptoms: nausea, vomiting, palpitations, shortness of breath, hurts to breathe Prior Chest Pain/Cardiac Workup: no prior cardiac workup Nitro Today/Relief: no nitro taken today Aspirin Treatment Today: no aspirin today Allergies/Adverse Reactions: buspirone HCl [From BuSpar] Allergy (Mild, Verified 06/23/17 11:19) rash hives cefaclor [From Ceclor] Allergy (Mild, Verified 06/23/17 11:19) rash hives latex [Latex] Allergy (Mild, Verified 06/23/17 11:19) redness and swollen azatadine maleate [From Rynatan] Allergy (Verified 06/23/17 11:19) rash hives chlorpheniramine [From Rynatan] Allergy (Verified 06/23/17 11:19) chlorpheniramine tannate [From Rynatan] Allergy (Verified 06/23/17 11:19) phenylephrine tannate [From Rynatan] Allergy (Verified 06/23/17 11:19) pseudoephedrine sulfate [From Rynatan] Allergy (Verified 06/23/17 11:19) pyrilamine tannate [From Rynatan] Allergy (Verified 06/23/17 11:19) venlafaxine [From Effexor] Allergy (Verified 06/23/17 11:19) Home Medications: [place]-3 Fatty Acids/Fish Oil [Fish Oil 1,000 mg Softgel] 1 each PO DAILY [History] Diclofenac Sodium [Voltaren] 75 mg PO BID 06/23/17 [History] Tizanidine HCl 2 mg PO TID 06/23/17 [History] Hx Tetanus, Diphtheria Vaccination/Date Given: Yes Hx Influenza Vaccination/Date Given: No Hx Pneumococcal Vaccination/Date Given: No Immunizations Up to Date: Yes - Review of Systems Constitutional: No Fever, No Chills Eyes: No Symptoms Ears, Nose, & Throat: No Symptoms Respiratory: Cough, Dyspnea Cardiac: Chest Pain, No Edema, No Syncope Abdominal/Gastrointestinal: Vomiting, No Abdominal Pain, No Diarrhea Genitourinary Symptoms: No Dysuria Musculoskeletal: No Back Pain, No Neck Pain Skin: No Rash Neurological: No Dizziness, No Focal Weakness, No Sensory Changes Psychological: No Symptoms Endocrine: No Symptoms All Other Systems: Reviewed and Negative - Past Medical History Pertinent Past Medical History: Yes Neurological History: Migraines ENT History: No Pertinent History Cardiac History: Arrhythmia Respiratory History: No Pertinent History Endocrine Medical History: No Pertinent History Musculoskeletal History: Fibromyalgia, Osteoarthritis, Other GI Medical History: No Pertinent History History: No Pertinent History Psycho-Social History: Anxiety, Depression, Panic Disorder, Other Female Reproductive Disorders: No Pertinent History Other Medical History: PATIENT REPORTS ABNORMAL HEART BEAT THAT "JUST HAPPENS" BUT DOESN'T TAKE MEDICATIONS OR SEE A SPECIALIST. 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 PATIENT REPORTS ARTHRITIS IN 85% OF MY BODY. - Past Surgical History Past Surgical History: Yes Neuro Surgical History: No Pertinent History Cardiac: No Pertinent History Respiratory: No Pertinent History Gastrointestinal: Cholecystectomy Genitourinary: No Pertinent History Musculoskeletal: Orthopedic Surgery Female Surgical History: Hysterectomy, Dilation & Curettage, Section, Tubal Ligation, Other Other Surgical History: 3 LEEP, Lt knee surgery 2011, bilat foot surgeries - Social History Smoking Status: Current every day smoker How long have you smoked: 27 yrs Exposure to second hand smoke: Yes Drug Use: none Patient Lives Alone: No - Female History Hx Now: No - Nursing Vital Signs Nursing Vital Signs: Initial Vital Signs Temperature 98.6 F 07/25/19 00:37 Pulse Rate 80 07/25/19 00:37 Respiratory Rate 19 07/25/19 00:37 Blood Pressure 126/91 07/25/19 00:37 O2 Sat by Pulse Oximetry 99 07/25/19 00:37 Pain Scale Pain Intensity 4 - Physical Exam General Appearance: no apparent distress, alert Eye Exam: PERRL/EOMI, eyes nml inspection Ears, Nose, Throat Exam: normal ENT inspection, moist mucous membranes Neck Exam: normal inspection, non-tender, supple, full range of motion Respiratory Exam: normal breath sounds, lungs clear, No respiratory distress Cardiovascular Exam: regular rate/rhythm, normal heart sounds Gastrointestinal/Abdomen Exam: soft, No tenderness, No mass Back Exam: normal inspection, No CVA tenderness, No vertebral tenderness Extremity Exam: normal inspection, normal range of motion Neurologic Exam: alert, oriented x 3, cooperative, normal mood/affect, sensation nml, No motor deficits Skin Exam: normal color, warm, dry SpO2: 99 - CT Exams Chest CT Interpretation: Negative Ordered Tests: Active Orders 24 hr Category Date Time Status EKG-ER Only STAT Care 07/25/19 00:59 Active IV Insertion STAT Care 07/25/19 00:59 Active CHEST 1 VIEW (PORTABLE) Stat Exams 07/25/19 01:00 Taken CHEST WITH CONTRAST [CT] Stat Exams 07/25/19 02:02 Taken AMYLASE Stat Lab 07/25/19 01:35 Completed CBC W DIFF Stat Lab 07/25/19 01:35 Completed CK-Creatinine Phosphokinase Stat Lab 07/25/19 01:35 Completed CMP Stat Lab 07/25/19 01:35 Completed D-DIMER QUANTITATIVE Stat Lab 07/25/19 01:35 Completed LIPASE Stat Lab 07/25/19 01:35 Completed NT PRO BNP Stat Lab 07/25/19 01:35 Completed PROTIME WITH INR Stat Lab 07/25/19 01:35 Completed TROPONIN Q3H Lab 07/25/19 01:35 Completed TROPONIN Q3H Lab 07/25/19 04:08 Completed TROPONIN Q3H Lab 07/25/19 07:00 Ordered TROPONIN Q3H Lab 01/04/20 10:00 Ordered TROPONIN Q3H Lab 07/25/19 13:00 Ordered UA W/RFX UR CULTURE Stat Lab 07/25/19 01:22 Completed Urine Triage Profile Stat Lab 07/25/19 01:09 Completed Medication Summary Discontinued Medications Generic Name Dose Route Start Last Admin Trade Name Jessica PRN Reason Stop Dose Admin Sodium Chloride 1,000 mls @ 999 mls/hr 07/25/19 00:59 07/25/19 02:55 Sodium Chloride 0.9% 1000 Ml IV 07/25/19 01:59 Infused .Q1H1M STA Infusion Sodium Chloride Confirm 07/25/19 01:02 Sodium Chloride 0.9% 1000 Ml Administered 07/25/19 01:03 Dose 1,000 mls @ ud .ROUTE .K-MED ONE Lab/Rad Data: Laboratory Result Diagrams 07/25/19 01:35 07/25/19 01:35 Laboratory Results 07/25/19 07/25/19 07/25/19 Range/Units 04:08 02:43 01:35 WBC (4.0-10.5) K/mm3 RBC (4.1-5.4) M/mm3 Hgb (12.0-16.0) gm/dl Hct (35-47) % MCV (78-100) fl MCH (26-32) pg MCHC (32-36) g/dl RDW (11.5-14.0) % Plt Count (150-450) K/mm3 MPV (7.5-11.0) fl Gran % (36.0-66.0) % Eos # (Auto) (0-0.5) Absolute Lymphs (auto) (1.0-4.6) Absolute Monos (auto) (0.0-1.3) Lymphocytes % (24.0-44.0) % Monocytes % (0.0-12.0) % Eosinophils % (0.00-5.0) % Basophils % (0.0-0.4) % Absolute Granulocytes (1.4-6.9) Basophils # (0-0.4) PT (9.95-12.35) SECONDS INR (0.8-3.0) D-Dimer (215-500) ng/mL Sodium (137-145) mmol/L Potassium (3.5-5.1) mmol/L Chloride (98-107) mmol/L Carbon Dioxide (22-30) mmol/L Anion Gap (5-15) MEQ/L BUN (7-17) mg/dL Creatinine (0.52-1.04) mg/dL Estimated GFR ML/MIN Glucose (74-106) mg/dL Calcium (8.4-10.2) mg/dL Total Bilirubin (0.2-1.3) mg/dL AST (14-36) U/L ALT (0-35) U/L Alkaline Phosphatase (38-126) U/L Creatine Kinase (30-135) U/L Troponin I < 0.012 < 0.012 (0.000-0.034) ng/mL NT-Pro-B Natriuret Pep (0-450) pg/mL Serum Total Protein (6.3-8.2) g/dL Albumin (3.5-5.0) g/dL Amylase (30-110) U/L Lipase (23-300) U/L Urine Color (YELLOW) Urine Appearance (CLEAR) Urine pH (5-6) Ur Specific [place] (1.005-1.025) Urine Protein (Negative) Urine Ketones (NEGATIVE) Urine Blood (0-5) Nomi/ul Urine Nitrite (NEGATIVE) Urine Bilirubin (NEGATIVE) Urine Urobilinogen (0-1) mg/dL Ur Leukocyte Esterase (NEGATIVE) Urine WBC (Auto) (0-5) /HPF Urine RBC (Auto) (0-2) /HPF U Epithel Cells (Auto) (FEW) /HPF Urine Bacteria (Auto) (NEGATIVE) /HPF Urine Culture Reflexed (NO) Urine Glucose (NEGATIVE) mg/dL Urine Opiates Level (NEGATIVE) Ur Methadone (NEGATIVE) Urine Barbiturates (NEGATIVE) Ur Phencyclidine (PCP) (NEGATIVE) Urine Amphetamine (NEGATIVE) U Benzodiazepine Level (NEGATIVE) Urine Cocaine (NEGATIVE) Urine Marijuana (THC) (NEGATIVE) Influenza Type A Ag NEGATIVE (NEGATIVE) Influenza Type B Ag NEGATIVE (NEGATIVE) RSV (PCR) NEGATIVE (Negative) Slides for Path Review 07/25/19 07/25/19 07/25/19 Range/Units 01:35 01:35 01:35 WBC 5.6 (4.0-10.5) K/mm3 RBC 4.23 (4.1-5.4) M/mm3 Hgb 12.6 (12.0-16.0) gm/dl Hct 38.4 (35-47) % MCV 90.8 (78-100) fl MCH 29.8 (26-32) pg MCHC 32.8 (32-36) g/dl RDW 13.8 (11.5-14.0) % Plt Count 181 (150-450) K/mm3 MPV 12.2 H (7.5-11.0) fl Gran % 49.7 (36.0-66.0) % Eos # (Auto) 0.20 (0-0.5) Absolute Lymphs (auto) 1.94 (1.0-4.6) Absolute Monos (auto) 0.64 (0.0-1.3) Lymphocytes % 35.0 (24.0-44.0) % Monocytes % 11.5 (0.0-12.0) % Eosinophils % 3.6 (0.00-5.0) % Basophils % 0.2 (0.0-0.4) % Absolute Granulocytes 2.76 (1.4-6.9) Basophils # 0.01 (0-0.4) PT 11.8 (9.95-12.35) SECONDS INR 1.04 (0.8-3.0) D-Dimer 1166 H* (215-500) ng/mL Sodium 140 (137-145) mmol/L Potassium 3.3 L (3.5-5.1) mmol/L Chloride 110 H (98-107) mmol/L Carbon Dioxide 22 (22-30) mmol/L Anion Gap 11.2 (5-15) MEQ/L BUN 7 (7-17) mg/dL Creatinine 0.57 (0.52-1.04) mg/dL Estimated GFR > 60.0 ML/MIN Glucose 95 (74-106) mg/dL Calcium 8.3 L (8.4-10.2) mg/dL Total Bilirubin 0.30 (0.2-1.3) mg/dL AST 24 (14-36) U/L ALT 21 (0-35) U/L Alkaline Phosphatase 85 (38-126) U/L Creatine Kinase 71 (30-135) U/L Troponin I (0.000-0.034) ng/mL NT-Pro-B Natriuret Pep 324 (0-450) pg/mL Serum Total Protein 7.0 (6.3-8.2) g/dL Albumin 3.8 (3.5-5.0) g/dL Amylase 48 (30-110) U/L Lipase 56 (23-300) U/L Urine Color (YELLOW) Urine Appearance (CLEAR) Urine pH (5-6) Ur Specific [place] (1.005-1.025) Urine Protein (Negative) Urine Ketones (NEGATIVE) Urine Blood (0-5) Nomi/ul Urine Nitrite (NEGATIVE) Urine Bilirubin (NEGATIVE) Urine Urobilinogen (0-1) mg/dL Ur Leukocyte Esterase (NEGATIVE) Urine WBC (Auto) (0-5) /HPF Urine RBC (Auto) (0-2) /HPF U Epithel Cells (Auto) (FEW) /HPF Urine Bacteria (Auto) (NEGATIVE) /HPF Urine Culture Reflexed (NO) Urine Glucose (NEGATIVE) mg/dL Urine Opiates Level (NEGATIVE) Ur Methadone (NEGATIVE) Urine Barbiturates (NEGATIVE) Ur Phencyclidine (PCP) (NEGATIVE) Urine Amphetamine (NEGATIVE) U Benzodiazepine Level (NEGATIVE) Urine Cocaine (NEGATIVE) Urine Marijuana (THC) (NEGATIVE) Influenza Type A Ag (NEGATIVE) Influenza Type B Ag (NEGATIVE) RSV (PCR) (Negative) Slides for Path Review YES 07/25/19 07/25/19 Range/Units 01:22 01:09 WBC (4.0-10.5) K/mm3 RBC (4.1-5.4) M/mm3 Hgb (12.0-16.0) gm/dl Hct (35-47) % MCV (78-100) fl MCH (26-32) pg MCHC (32-36) g/dl RDW (11.5-14.0) % Plt Count (150-450) K/mm3 MPV (7.5-11.0) fl Gran % (36.0-66.0) % Eos # (Auto) (0-0.5) Absolute Lymphs (auto) (1.0-4.6) Absolute Monos (auto) (0.0-1.3) Lymphocytes % (24.0-44.0) % Monocytes % (0.0-12.0) % Eosinophils % (0.00-5.0) % Basophils % (0.0-0.4) % Absolute Granulocytes (1.4-6.9) Basophils # (0-0.4) PT (9.95-12.35) SECONDS INR (0.8-3.0) D-Dimer (215-500) ng/mL Sodium (137-145) mmol/L Potassium (3.5-5.1) mmol/L Chloride (98-107) mmol/L Carbon Dioxide (22-30) mmol/L Anion Gap (5-15) MEQ/L BUN (7-17) mg/dL Creatinine (0.52-1.04) mg/dL Estimated GFR ML/MIN Glucose (74-106) mg/dL Calcium (8.4-10.2) mg/dL Total Bilirubin (0.2-1.3) mg/dL AST (14-36) U/L ALT (0-35) U/L Alkaline Phosphatase (38-126) U/L Creatine Kinase (30-135) U/L Troponin I (0.000-0.034) ng/mL NT-Pro-B Natriuret Pep (0-450) pg/mL Serum Total Protein (6.3-8.2) g/dL Albumin (3.5-5.0) g/dL Amylase (30-110) U/L Lipase (23-300) U/L Urine Color YELLOW (YELLOW) Urine Appearance CLEAR (CLEAR) Urine pH 7.0 (5-6) Ur Specific [place] 1.018 (1.005-1.025) Urine Protein NEGATIVE (Negative) Urine Ketones NEGATIVE (NEGATIVE) Urine Blood NEGATIVE (0-5) Nomi/ul Urine Nitrite NEGATIVE (NEGATIVE) Urine Bilirubin NEGATIVE (NEGATIVE) Urine Urobilinogen 4 (0-1) mg/dL Ur Leukocyte Esterase NEGATIVE (NEGATIVE) Urine WBC (Auto) 0-2 (0-5) /HPF Urine RBC (Auto) NONE SEEN (0-2) /HPF U Epithel Cells (Auto) RARE (FEW) /HPF Urine Bacteria (Auto) NONE SEEN (NEGATIVE) /HPF Urine Culture Reflexed NO (NO) Urine Glucose NEGATIVE (NEGATIVE) mg/dL Urine Opiates Level NEGATIVE (NEGATIVE) Ur Methadone NEGATIVE (NEGATIVE) Urine Barbiturates NEGATIVE (NEGATIVE) Ur Phencyclidine (PCP) NEGATIVE (NEGATIVE) Urine Amphetamine NEGATIVE (NEGATIVE) U Benzodiazepine Level NEGATIVE (NEGATIVE) Urine Cocaine NEGATIVE (NEGATIVE) Urine Marijuana (THC) NEGATIVE (NEGATIVE) Influenza Type A Ag (NEGATIVE) Influenza Type B Ag (NEGATIVE) RSV (PCR) (Negative) Slides for Path Review - Progress Progress: improved Air Movement: good Blood Culture(s) Obtained: No Antibiotics given: Yes - Departure Departure Disposition: Home Clinical Impression: Acute bacterial bronchitis Condition: Stable Critical Care Time: No Referrals: JUSTUS FREGOSO [Primary Care Provider] - Prescriptions: Doxycycline Hyclate 100 mg [Vibramycin 100 MG] 100 mg PO BID 10 Days #20 tab
[2019-07-25] MEDS ORDERED: Vibramycin 100 MG PO ONE (04:48)
[2019-07-25] MEDS ORDERED: Vibramycin 100 MG ONE (06:06)
[2019-07-25 06:20] VITALS: O2SAT 98
[2019-07-25 06:21] VITALS: BP 121/71; PULSE 89
--- NOTE | 2019-07-25 07:37 | XRAY ---
Indication: Chest pain, arm numbness, and elevated d-dimer. Multiple contiguous axial images obtained through the chest using 80 cc of Isovue-370 contrast and PE protocol. Comparison: None There is good opacification of the pulmonary arteries to include the lobar and segmental branches. No filling defect or pulmonary embolus. Heart is not enlarged. Aorta is normal in course and caliber. A few tiny subcarinal and left hilar calcified nodes. No pathologic mediastinal/hilar lymphadenopathy. Lungs are inflated and clear. Bony thorax intact with minimal degenerative changes throughout the spine. Limited upper abdomen demonstrates mild fatty liver and cholecystectomy clips. Impression: 1. Negative pulmonary embolus. No acute cardiopulmonary abnormalities. 2. Incidental fatty liver and evidence for old granulomatous disease. Comment: Preliminary interpretation was made by [facility]. No critical discrepancy.
--- NOTE | 2019-07-25 07:39 | XRAY ---
Indication: Chest pain. Comparison: January 02, 2016. Portable chest again demonstrates normal heart, lungs, and bony thorax.
== END 2019-07-25 06:19 | disposition home or self-care (01) ==
LOC: ED 00:32
DX: J20.8 Acute bronchitis due to other specified organisms (principal)
CPT/HCPCS: 36000; 36415; 71045; 71260; 80053; 80307; 81001; 82150; 82550; 83690; 83880; 84484; 85025; 85379; 85610; 87631; 93005; 96360; 99284; A9270-GY

== ENCOUNTER 2020-12-03 20:40 | Emergency (ER) | payer OTHER ==
[2020-12-03 21:10] LABS: Absolute Neutrophil Ct (ANC) 5.38 (1.4-6.9); BASOPHIL % 0.2 % (0.0-0.4); Basophil (Absolute #) 0.02 (0-0.4); Eosinophil % 1.2 % (0.00-5.0); Eosinophil (Absolute #) 0.11 (0-0.5); Hemoglobin 13.6 gm/dl (12.0-16.0); Lymphocyte (Absolute #) 2.86 (1.0-4.6); Lymphocytes % 31.4 % (24.0-44.0); Mean Cell Volume 90.1 fl (78-100); Mean Corpuscular Hemoglobin 29.2 pg (26-32); Mean Corpuscular Hgb Concent. 32.4 g/dl (32-36); Mean Platelet Volume 10.8 fl (7.5-11.0); Monocyte (Absolute #) 0.75 (0.0-1.3); Monocytes % 8.2 % (0.0-12.0); Platelet Count 228 K/mm3 (150-450); Red Blood Count 4.66 M/mm3 (4.1-5.4); Red Cell Distribution Width 13.8 % (11.5-14.0); White Blood Count 9.1 K/mm3 (4.0-10.5)
--- NOTE | 2020-12-03 21:19 | ERPHSYRPT ---
- History of Present Illness Time Seen by Provider: 12/03/20 21:16 Source: patient Exam Limitations: no limitations Patient Subjective Stated Complaint: "My head was hurting and my blood pressure was high at home." Triage Nursing Assessment: Patient reported feeling "funny" at home. Following this, she reported having a pressure headache and having high blood pressure at home. Reports one single episode lasting roughly 5 minutes of chest pain. patient reported right sided headache non-radiating. Denied visual/auditory disturbances. Denied chest pain, shortness of breath, nausea, vomiting. Pupils 3mm bilateral. Neck supple non-tender without bruits/thrills. Symmetrical chest expansion. Heart tones S1/S2 regular rate and rhythm. Lungs vesicular withou adventitious sounds. Abdomen obese non-distended. Bowel sounds present. Peripheral pulses +2 bilateral. Physician History: "My head was hurting and my blood pressure was high at home." for 2-3 days Patient reported feeling "funny" at home. Following this, she reported having a pressure headache and having high blood pressure at home. Reports one single episode lasting roughly 5 minutes of chest pain. patient reported right sided headache non-radiating. Denied visual/auditory disturbances. Denied chest pain, shortness of breath, nausea, vomiting. Timing/Duration: day(s) (2-3 days) Activities at Onset: none Location: substernal Chest Pain Radiation: no radiation Severity of Pain-Max: mild Severity of Pain-Current: mild Modifying Factors: Improves With: nothing Nitro Today/Relief: no nitro taken today Aspirin Treatment Today: no aspirin today Associated Symptoms: chest pain, headaches Prior Chest Pain/Cardiac Workup: no prior chest pain Allergies/Adverse Reactions: buspirone HCl [From BuSpar] Allergy (Mild, Verified 12/03/20 20:45) rash hives cefaclor [From Ceclor] Allergy (Mild, Verified 12/03/20 20:45) rash hives latex [Latex] Allergy (Mild, Verified 12/03/20 20:45) redness and swollen azatadine maleate [From Rynatan] Allergy (Verified 12/03/20 20:45) rash hives chlorpheniramine [From Rynatan] Allergy (Verified 12/03/20 20:45) chlorpheniramine tannate [From Rynatan] Allergy (Verified 12/03/20 20:45) phenylephrine tannate [From Rynatan] Allergy (Verified 12/03/20 20:45) pseudoephedrine sulfate [From Rynatan] Allergy (Verified 12/03/20 20:45) pyrilamine tannate [From Rynatan] Allergy (Verified 12/03/20 20:45) venlafaxine [From Effexor] Allergy (Verified 12/03/20 20:45) Home Medications: [place]-3 Fatty Acids/Fish Oil [Fish Oil 1,000 mg Softgel] 1 each PO DAILY 08/22/16 [History] Diclofenac Sodium [Voltaren] 75 mg PO BID 06/23/17 [History] Tizanidine HCl 2 mg PO TID 06/23/17 [History] Hx Tetanus, Diphtheria Vaccination/Date Given: Yes Hx Influenza Vaccination/Date Given: No Hx Pneumococcal Vaccination/Date Given: No Travel Risk - International Travel Have you traveled outside of the country in past 3 weeks: No - Coronavirus Screening Are you exhibiting any of the following symptoms?: No Close contact with a COVID-19 positive Pt in past 14-21 Days: No - Vaccine Status Have you recieved a Covid-19 vaccination: No - Review of Systems Constitutional: No Fever, No Chills Eyes: No Symptoms Ears, Nose, & Throat: No Symptoms Respiratory: No Cough, No Dyspnea Cardiac: Chest Pain, No Edema, No Syncope Abdominal/Gastrointestinal: No Abdominal Pain, No Nausea, No Vomiting, No Diarrhea Genitourinary Symptoms: No Dysuria Musculoskeletal: No Back Pain, No Neck Pain Skin: No Rash Neurological: Headache, No Dizziness, No Focal Weakness, No Sensory Changes Psychological: No Symptoms Endocrine: No Symptoms All Other Systems: Reviewed and Negative - Past Medical History Pertinent Past Medical History: Yes Neurological History: Migraines ENT History: No Pertinent History Cardiac History: Arrhythmia Respiratory History: No Pertinent History Endocrine Medical History: No Pertinent History Musculoskeletal History: Fibromyalgia, Osteoarthritis, Other GI Medical History: No Pertinent History History: No Pertinent History Psycho-Social History: Anxiety, Depression, Panic Disorder, Other Female Reproductive Disorders: No Pertinent History Other Medical History: PATIENT REPORTS ABNORMAL HEART BEAT THAT "JUST HAPPENS" BUT DOESN'T TAKE MEDICATIONS OR SEE A SPECIALIST. 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 PATIENT REPORTS ARTHRITIS IN 85% OF MY BODY. - Past Surgical History Past Surgical History: Yes Neuro Surgical History: No Pertinent History Cardiac: No Pertinent History Respiratory: No Pertinent History Gastrointestinal: Cholecystectomy Genitourinary: No Pertinent History Musculoskeletal: Orthopedic Surgery Female Surgical History: Hysterectomy, Dilation & Curettage, Section, Tubal Ligation, Other Other Surgical History: 3 LEEP, Lt knee surgery 2011, bilat foot surgeries - Social History Smoking Status: Current every day smoker How long have you smoked: 27 yrs Exposure to second hand smoke: Yes Drug Use: none Patient Lives Alone: No - Female History Hx Now: No - Nursing Vital Signs Nursing Vital Signs: Initial Vital Signs Temperature 98.4 F 12/03/20 20:40 Pulse Rate 96 H 12/03/20 20:40 Respiratory Rate 16 12/03/20 20:40 Blood Pressure 146/89 12/03/20 20:40 O2 Sat by Pulse Oximetry 99 12/03/20 20:40 Pain Scale Pain Intensity 3 - Physical Exam General Appearance: no apparent distress, alert Eye Exam: PERRL/EOMI, eyes nml inspection Ears, Nose, Throat Exam: normal ENT inspection, moist mucous membranes Neck Exam: normal inspection, non-tender, supple Respiratory Exam: normal breath sounds, lungs clear, No respiratory distress Cardiovascular Exam: regular rate/rhythm, normal heart sounds, No edema Gastrointestinal/Abdomen Exam: soft, No tenderness, No mass Back Exam: normal inspection, No CVA tenderness, No vertebral tenderness Extremity Exam: normal inspection, normal range of motion Neurologic Exam: alert, oriented x 3, cooperative, normal mood/affect, nml cerebellar function, sensation nml, No motor deficits Skin Exam: normal color, warm, dry Lymphatic Exam: No adenopathy SpO2: 99 - Course Nursing assessment & vital signs reviewed: Yes EKG Interpreted by Me: Sinus Rhythm - Radiology Exams Chest X-ray Interpretation: Reviewed by me, Negative Ordered Tests: Active Orders 24 hr Category Date Time Status EKG-ER Only STAT Care 12/03/20 20:54 Active CHEST 2 VIEWS (PA AND LAT) Stat Exams 12/03/20 20:54 Taken CBC W DIFF Stat Lab 12/03/20 21:07 Completed CMP Stat Lab 12/03/20 21:07 Completed TROPONIN Stat Lab 12/03/20 21:07 Completed Medication Summary Generic Name Dose Route Start Last Admin Trade Name Freq PRN Reason Stop Dose Admin Lisinopril 10 mg/ 0 mg 12/03/20 22:00 Hydrochlorothiazide 12.5 mg PO 12/03/20 22:01 1XONLY STA Lab/Rad Data: Laboratory Result Diagrams 12/03/20 21:07 12/03/20 21:07 Laboratory Results 12/03/20 12/03/20 Range/Units 21:07 21:07 WBC 9.1 (4.0-10.5) K/mm3 RBC 4.66 (4.1-5.4) M/mm3 Hgb 13.6 (12.0-16.0) gm/dl Hct 42.0 (35-47) % MCV 90.1 (78-100) fl MCH 29.2 (26-32) pg MCHC 32.4 (32-36) g/dl RDW 13.8 (11.5-14.0) % Plt Count 228 (150-450) K/mm3 MPV 10.8 (7.5-11.0) fl Gran % 59.0 (36.0-66.0) % Eos # (Auto) 0.11 (0-0.5) Absolute Lymphs (auto) 2.86 (1.0-4.6) Absolute Monos (auto) 0.75 (0.0-1.3) Lymphocytes % 31.4 (24.0-44.0) % Monocytes % 8.2 (0.0-12.0) % Eosinophils % 1.2 (0.00-5.0) % Basophils % 0.2 (0.0-0.4) % Absolute Granulocytes 5.38 (1.4-6.9) Basophils # 0.02 (0-0.4) Sodium 139 (137-145) mmol/L Potassium 3.5 (3.5-5.1) mmol/L Chloride 105 (98-107) mmol/L Carbon Dioxide 26 (22-30) mmol/L Anion Gap 11.6 (5-15) MEQ/L BUN 18 H (7-17) mg/dL Creatinine 0.67 (0.52-1.04) mg/dL Estimated GFR > 60.0 ML/MIN Glucose 107 H (74-106) mg/dL Calcium 9.4 (8.4-10.2) mg/dL Total Bilirubin 0.30 (0.2-1.3) mg/dL AST 22 (14-36) U/L ALT 26 (0-35) U/L Alkaline Phosphatase 75 (38-126) U/L Troponin I < 0.012 (0.000-0.034) ng/mL Serum Total Protein 7.3 (6.3-8.2) g/dL Albumin 4.4 (3.5-5.0) g/dL - Progress Progress: improved Air Movement: good Blood Culture(s) Obtained: No Antibiotics given: No Counseled pt/family regarding: lab results, diagnosis, need for follow-up, rad results - Departure Departure Disposition: Home Clinical Impression: Hypertension, essential Condition: Stable Critical Care Time: Yes Critical Care Time(excluding separately billable procedures): Critical 30-74 mins Referrals: JUSTUS FREGOSO [Primary Care Provider] - Instructions: Malignant Hypertension (DC) Additional Instructions: AMADA MARTINEZ CHAPINCITO was seen on 12/03/20 n the Emergency Room. At that time you were treated for an emergent condition, during your visit Laboratory, Radiology and/or other procedures may have been ordered. It is very important that you follow-up with your Primary Care Physician JUSTUS FREGOSO within the next 24-48 hours to review your Emergency Room visit and the final results of testing that was ordered. Some test results such as Urine Cultures, Blood Cultures, and other cultures if ordered will not be finalized for 24-48 hours. If you do not have a Primary Care Provider please call the medical records department at [phone] to obtain a copy of your results or you may sign into our patient portal to obtain these results by visiting us @ [email or web address] and completing the following steps: 1. Click on the Patient Portal link 2. Click the Patient Self Enrollment Link to complete the enrollment form and entering your 3. Once the enrollment form is completed you will receive an email with a temporary ID and password at the email address you provided. 4. Next choose a user name and password. Your user name must be at least 4 characters long and your password must be at least 4 characters long. 5. Choose a security question from the list and provide your answer to the question. If you already have signed into the Health Portal you may access your Health Care Information 11/02 by the following steps: 1. Login to our website @ [email or web address] 2. Enter your original user name and password. FAQS The [facility] Health Portal is an online tool that contains your Lab Results, Radiology Reports, Visit History, Discharge Instructions and Health Summary Lab and Radiology Results will not be available for 72 hours on the portal. The Portal is a secure site, passwords are encryted and URLs are re-written so they cannot be copied and pasted. You and authorized family members are the only ones who can access your Portal. Also there is a timeout feature that protects your information if you leave the Portal page open. If you have technical difficulty please use the Contact Us link on the page this will allow you to submit any questions you have regarding the Portal or you may contact the Medical Record Department at [phone]. Discharge/Care Plan AMADA MARTINEZ was seen on 12/03/20 in the Emergency Room. The patient was counseled regarding Diagnosis,Lab results, Imaging studies, need for follow up and when to return to the Emergency Room. Prescriptions given: Discharge Note I have spoken with the patient and/or caregivers. I have explained the patient's condition, diagnosis and treatment plan based on the information available to me at this time. I have answered the patient's and/or caregiver's questions and addressed any concerns. The patient and/or caregivers have as good understanding of the patient's diagnosis, condition and treatment plan as can be expected at this point. The vital signs have been stable. The patient's condition is stable and appropriate for discharge from the emergency department. The patient will pursue further outpatient evaluation with the primary care physician or other designated or consulting physician as outlined in the discharge instructions. The patient and/or caregivers are agreeable to this plan of care and follow-up instructions have been explained in detail. The patient and/or caregivers have received these instruction. The patient/and or caregivers are aware that any significant change in condition or worsening of symptoms should prompt an immediate return to this or the closest emergency department or call 911. Prescriptions: Lisinopril/Hydrochlorothiazide [Lisinopril-Hctz 10-12.5 mg Tab] 1 each PO QAM #30 tablet
[2020-12-03 21:35] LABS: ALBUMIN 4.4 g/dL (3.5-5.0); ALKALINE PHOSPHATASE 75 U/L (38-126); ANION GAP 11.6 MEQ/L (5-15); BLOOD UREA NITROGEN 18 mg/dL (7-17); CHLORIDE 105 mmol/L (98-107); Calcium 9.4 mg/dL (8.4-10.2); Carbon Dioxide 26 mmol/L (22-30); Creatinine 1 0.67 mg/dL (0.52-1.04); EST GLOMERULAR FILTRATION RATE > 60.0 ML/MIN; Glucose 107 mg/dL (74-106); Potassium 3.5 mmol/L (3.5-5.1); SGOT/AST 22 U/L (14-36); SGPT/ALT 26 U/L (0-35); SODIUM 139 mmol/L (137-145); TROPONIN < 0.012 ng/mL (0.000-0.034); Total Protein 7.3 g/dL (6.3-8.2)
[2020-12-03] MEDS ORDERED: Zestril 10 MG*** 10 MG, hydroDIURIL 25 MG*** 12.5 MG PO STA ×2 (22:00)
[2020-12-03 22:04] VITALS: O2SAT 99
--- NOTE | 2020-12-03 22:38 | XRAY ---
Indication: Headache. Hypertension. Comparison: July 25, 2019. PA/lateral chest again demonstrates normal heart and lungs. Bony thorax intact with remote T11-T12 anterior wedging deformities. No new/acute findings.
[2020-12-03 23:05] VITALS: BP 109/76; PULSE 88
== END 2020-12-03 23:06 | disposition home or self-care (01) ==
LOC: ED 20:40
DX: I10 Essential (primary) hypertension (principal)
CPT/HCPCS: 36415; 71046; 80053; 84484; 85025; 93005; 99284; 99291; A9270-GY

== ENCOUNTER 2021-01-12 00:25 | Emergency (ER) | payer OTHER ==
[2021-01-12] MEDS ORDERED: BABY ASPIRIN 81 MG CHEW PO ONE (00:45)
[2021-01-12] MEDS ORDERED: TORAdol 30 mg Injection IV ONE (00:46)
[2021-01-12] MEDS ORDERED: TORAdol 30 mg Injection ONE (00:55)
[2021-01-12] MEDS ORDERED: BABY ASPIRIN 81 MG CHEW ONE (00:55)
--- NOTE | 2021-01-12 00:57 | ERPHSYRPT ---
- History of Present Illness Time Seen by Provider: 01/12/21 00:32 Historian: patient Exam Limitations: no limitations Patient Subjective Stated Complaint: pt states she started having chest pain tonight while at rest. describes pain as dull and heaviness Triage Nursing Assessment: pt alert and oriented, answers questions approp. pt ambulatory with steady gait noted. respirations nonlabored with lungs cta. skin warm and dry. heart rate sinus arrhytmia on monitor. 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 Patient currently reports minimal to no chest pain. Denies any difficulty breathing or palpitations. No fever chills cough or shortness of breath reported. Denies any lower extremity swelling, long travel, hormone intake or history of PE/DVTs. She also has headache mild to moderate and once on nonnarcotic pain medications for that. Timing/Duration: today, hour(s) (2), intermittent, sudden, improved Activities at Onset: rest Quality: dullness, fullness, pressure Location: central Severity of Pain-Max: moderate Severity of Pain-Current: mild Modifying Factors: Improves With: nothing Associated Symptoms: denies symptoms Nitro Today/Relief: no nitro taken today Aspirin Treatment Today: 81 mg x 1 Allergies/Adverse Reactions: buspirone HCl [From BuSpar] Allergy (Mild, Verified 12/03/20 20:45) rash hives cefaclor [From Ceclor] Allergy (Mild, Verified 12/03/20 20:45) rash hives latex [Latex] Allergy (Mild, Verified 12/03/20 20:45) redness and swollen azatadine maleate [From Rynatan] Allergy (Verified 12/03/20 20:45) rash hives chlorpheniramine [From Rynatan] Allergy (Verified 12/03/20 20:45) chlorpheniramine tannate [From Rynatan] Allergy (Verified 12/03/20 20:45) phenylephrine tannate [From Rynatan] Allergy (Verified 12/03/20 20:45) pseudoephedrine sulfate [From Rynatan] Allergy (Verified 12/03/20 20:45) pyrilamine tannate [From Rynatan] Allergy (Verified 12/03/20 20:45) venlafaxine [From Effexor] Allergy (Verified 12/03/20 20:45) Home Medications: [place]-3 Fatty Acids/Fish Oil [Fish Oil 1,000 mg Softgel] 1 each PO DAILY 08/22/16 [History] Diclofenac Sodium [Voltaren] 75 mg PO BID 06/23/17 [History] Tizanidine HCl 2 mg PO TID 06/23/17 [History] Hx Tetanus, Diphtheria Vaccination/Date Given: Yes Hx Influenza Vaccination/Date Given: No Hx Pneumococcal Vaccination/Date Given: No Immunizations Up to Date: Yes Travel Risk - International Travel Have you traveled outside of the country in past 3 weeks: No - Coronavirus Screening Are you exhibiting any of the following symptoms?: No Close contact with a COVID-19 positive Pt in past 14-21 Days: No - Vaccine Status Have you recieved a Covid-19 vaccination: No - Review of Systems Constitutional: No Symptoms Eyes: No Symptoms Ears, Nose, & Throat: No Symptoms Respiratory: No Symptoms Cardiac: Chest Pain Abdominal/Gastrointestinal: No Symptoms Genitourinary Symptoms: No Symptoms Musculoskeletal: No Symptoms Neurological: Headache Psychological: No Symptoms Endocrine: No Symptoms Hematologic/Lymphatic: No Symptoms Immunological/Allergic: No Symptoms - Past Medical History Pertinent Past Medical History: Yes Neurological History: Migraines ENT History: No Pertinent History Cardiac History: Arrhythmia Respiratory History: No Pertinent History Endocrine Medical History: No Pertinent History Musculoskeletal History: Fibromyalgia, Osteoarthritis, Other GI Medical History: No Pertinent History History: No Pertinent History Psycho-Social History: Anxiety, Depression, Panic Disorder, Other Female Reproductive Disorders: No Pertinent History Other Medical History: PATIENT REPORTS ABNORMAL HEART BEAT THAT "JUST HAPPENS" BUT DOESN'T TAKE MEDICATIONS OR SEE A SPECIALIST. 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 PATIENT REPORTS ARTHRITIS IN 85% OF MY BODY. daphney howell - Past Surgical History Past Surgical History: Yes Neuro Surgical History: No Pertinent History Cardiac: No Pertinent History Respiratory: No Pertinent History Gastrointestinal: Cholecystectomy Genitourinary: No Pertinent History Musculoskeletal: Orthopedic Surgery Female Surgical History: Hysterectomy, Dilation & Curettage, Section, Tubal Ligation, Other Other Surgical History: 3 LEEP, Lt knee surgery 2011, bilat foot surgeries - Social History Smoking Status: Current every day smoker How long have you smoked: 27 yrs Exposure to second hand smoke: Yes Drug Use: none Patient Lives Alone: No - Female History Hx Last Menstrual Period: hyster Hx Now: No - Nursing Vital Signs Nursing Vital Signs: Initial Vital Signs Pulse Rate 64 01/12/21 00:27 Respiratory Rate 18 01/12/21 00:27 Blood Pressure 135/90 01/12/21 00:27 O2 Sat by Pulse Oximetry 99 01/12/21 00:27 Pain Scale Pain Intensity 4 - Physical Exam General Appearance: no apparent distress, alert, anxiety Eye Exam: PERRL/EOMI, eyes nml inspection Ears, Nose, Throat Exam: normal ENT inspection, TMs normal, pharynx normal Neck Exam: normal inspection, non-tender, supple, full range of motion Respiratory Exam: normal breath sounds, lungs clear Cardiovascular Exam: regular rate/rhythm, normal heart sounds Gastrointestinal/Abdomen Exam: soft, normal bowel sounds, No tenderness Back Exam: normal inspection, normal range of motion Extremity Exam: normal inspection, normal range of motion Neurologic Exam: alert, oriented x 3, cooperative, development trainer II-XII nml as tested, normal mood/affect, nml cerebellar function, nml station & gait, sensation nml, No motor deficits, No sensory deficit Skin Exam: normal color SpO2 Interpretation: normal SpO2: 99 O2 Delivery: Room Air - Course EKG Interpreted by Me: RATE (68), Sinus Rhythm, NORMAL AXIS, NORMAL INTERVALS, NORMAL QRS Ordered Tests: Medication Summary Discontinued Medications Generic Name Dose Route Start Last Admin Trade Name Jessica PRN Reason Stop Dose Admin Aspirin 243 mg 01/12/21 00:45 01/12/21 01:00 Baby Aspirin 81 Mg Chew PO 01/12/21 00:46 243 mg STAT ONE Administration Aspirin Confirm 01/12/21 00:55 Baby Aspirin 81 Mg Chew Administered 01/12/21 00:56 Dose 243 mg .ROUTE .STK-MED ONE Ketorolac Tromethamine 30 mg 01/12/21 00:46 01/12/21 00:57 Toradol 30 Mg Injection IV 01/12/21 00:47 30 mg STAT ONE Administration Ketorolac Tromethamine Confirm 01/12/21 00:55 Toradol 30 Mg Injection Administered 01/12/21 00:56 Dose 30 mg .ROUTE .STK-MED ONE Lab/Rad Data: Laboratory Result Diagrams 01/12/21 00:45 01/12/21 01:00 Laboratory Results 01/12/21 01/12/21 01/12/21 Range/Units 01:00 01:00 00:45 WBC 8.6 (4.0-10.5) K/mm3 RBC 4.55 (4.1-5.4) M/mm3 Hgb 13.3 (12.0-16.0) gm/dl Hct 40.9 (35-47) % MCV 89.9 (78-100) fl MCH 29.2 (26-32) pg MCHC 32.5 (32-36) g/dl RDW 13.9 (11.5-14.0) % Plt Count 211 (150-450) K/mm3 MPV 11.6 H (7.5-11.0) fl Gran % 52.9 (36.0-66.0) % Eos # (Auto) 0.16 (0-0.5) Absolute Lymphs (auto) 3.09 (1.0-4.6) Absolute Monos (auto) 0.78 (0.0-1.3) Lymphocytes % 35.9 (24.0-44.0) % Monocytes % 9.1 (0.0-12.0) % Eosinophils % 1.9 (0.00-5.0) % Basophils % 0.2 (0.0-0.4) % Absolute Granulocytes 4.56 (1.4-6.9) Basophils # 0.02 (0-0.4) Sodium 137 (137-145) mmol/L Potassium 3.8 (3.5-5.1) mmol/L Chloride 103 (98-107) mmol/L Carbon Dioxide 26 (22-30) mmol/L Anion Gap 11.7 (5-15) MEQ/L BUN 17 (7-17) mg/dL Creatinine 0.92 (0.52-1.04) mg/dL Estimated GFR > 60.0 ML/MIN Glucose 95 (74-106) mg/dL Calcium 9.2 (8.4-10.2) mg/dL Total Bilirubin 0.20 (0.2-1.3) mg/dL AST 23 (14-36) U/L ALT 21 (0-35) U/L Alkaline Phosphatase 79 (38-126) U/L Troponin I < 0.012 (0.000-0.034) ng/mL NT-Pro-B Natriuret Pep 80.7 (0-450) pg/mL Serum Total Protein 7.1 (6.3-8.2) g/dL Albumin 4.4 (3.5-5.0) g/dL - Progress Progress: improved Air Movement: good Progress Note: She is given symptomatic treatment for pain. On reevaluation she is pain-free. Chest pain work-up is negative. She has a CTA done few days ago which was negative. Do not think she has PE or dissection. Recommended outpatient follow-up. Part of her symptoms are secondary to anxiety as well. Discussed outpatient primary care and cardiology follow-up. Discussed signs symptoms of worsening needing return to ER which she seems understanding. Blood Culture(s) Obtained: No Antibiotics given: No Counseled pt/family regarding: lab results, diagnosis, need for follow-up, rad results - Departure Clinical Impression: Atypical chest pain Condition: Stable Critical Care Time: No Referrals: JUSTUS FREGOSO [Primary Care Provider] - Follow Up with PCP/3 days ZARI WOODS [CONSULTING PHYSICIAN] - (1-2 days for reevaluation) Instructions: Angina (DC), Chest Pain (DC) Additional Instructions: Take Tylenol as needed for pain. Follow-up with primary care and cardiology for reevaluation. Return to ER for worsening chest pain or if develop palpitations/shortness of breath etc.
[2021-01-12 01:00] LABS: Absolute Neutrophil Ct (ANC) 4.56 (1.4-6.9); BASOPHIL % 0.2 % (0.0-0.4); Basophil (Absolute #) 0.02 (0-0.4); Eosinophil % 1.9 % (0.00-5.0); Eosinophil (Absolute #) 0.16 (0-0.5); Hematocrit 40.9 % (35-47); Hemoglobin 13.3 gm/dl (12.0-16.0); Lymphocyte (Absolute #) 3.09 (1.0-4.6); Lymphocytes % 35.9 % (24.0-44.0); Mean Cell Volume 89.9 fl (78-100); Mean Corpuscular Hemoglobin 29.2 pg (26-32); Mean Corpuscular Hgb Concent. 32.5 g/dl (32-36); Mean Platelet Volume 11.6 fl (7.5-11.0); Monocyte (Absolute #) 0.78 (0.0-1.3); Monocytes % 9.1 % (0.0-12.0); Neutrophil % 52.9 % (36.0-66.0); Platelet Count 211 K/mm3 (150-450); Red Blood Count 4.55 M/mm3 (4.1-5.4); Red Cell Distribution Width 13.9 % (11.5-14.0); White Blood Count 8.6 K/mm3 (4.0-10.5)
[2021-01-12 01:22] LABS: ALBUMIN 4.4 g/dL (3.5-5.0); ALKALINE PHOSPHATASE 79 U/L (38-126); ANION GAP 11.7 MEQ/L (5-15); BLOOD UREA NITROGEN 17 mg/dL (7-17); CHLORIDE 103 mmol/L (98-107); Calcium 9.2 mg/dL (8.4-10.2); Carbon Dioxide 26 mmol/L (22-30); Creatinine 1 0.92 mg/dL (0.52-1.04); EST GLOMERULAR FILTRATION RATE > 60.0 ML/MIN; Glucose 95 mg/dL (74-106); NT PRO BNP 80.7 pg/mL (0-450); Potassium 3.8 mmol/L (3.5-5.1); SGOT/AST 23 U/L (14-36); SGPT/ALT 21 U/L (0-35); SODIUM 137 mmol/L (137-145); Total Protein 7.1 g/dL (6.3-8.2)
[2021-01-12 01:31] VITALS: BP 107/73; PULSE 71
--- NOTE | 2021-01-12 17:15 | XRAY ---
Exam: AP 85 upright portable chest film from 01/12/2021. Comparison: Two-view chest from 12/03/2020. Indication: Chest pain, headache. Findings: 2 images were obtained. The transverse heart size is normal. The stuart and mediastinal structures appear unremarkable. The lungs are well inflated. No air space infiltrates, passive congestion, pneumothorax, or pleural fluid is seen. No acute osseous process is seen. Impression: 1. No acute cardiopulmonary disease is seen. The findings are unchanged from 12/03/2020.
[2021-01-18 01:09] VITALS: O2SAT 99
== END 2021-01-12 00:48 | disposition home or self-care (01) ==
LOC: ED 00:25
DX: R07.89 Other chest pain (principal)
CPT/HCPCS: 36000; 36415; 71045; 80053; 83880; 84484; 85025; 93005; 93041; 96374; 99284; J1885; A9270-GY

== ENCOUNTER 2021-08-28 12:51 | Emergency (ER) | payer OTHER ==
--- NOTE | 2021-08-28 13:40 | ERPHSYRPT ---
- History of Present Illness Patient Subjective Stated Complaint: SOB Triage Nursing Assessment: Patient ambulated back to ED and transferred self to bed. Patient A+O X3. Patient's skin pink, warm and dry. Patient complains of SOB and cough for the past 4 days. Patient also complains of epigastric pain 4/10 for the past 4 days. Patient complains of headache and non productive cough. Lungs clear a/p mamadou. Allergies/Adverse Reactions: buspirone HCl [From BuSpar] Allergy (Mild, Verified 08/28/21 12:55) rash hives cefaclor [From Ceclor] Allergy (Mild, Verified 08/28/21 12:55) rash hives latex [Latex] Allergy (Mild, Verified 08/28/21 12:55) redness and swollen azatadine maleate [From Rynatan] Allergy (Verified 08/28/21 12:55) rash hives chlorpheniramine [From Rynatan] Allergy (Verified 08/28/21 12:55) chlorpheniramine tannate [From Rynatan] Allergy (Verified 08/28/21 12:55) phenylephrine tannate [From Rynatan] Allergy (Verified 08/28/21 12:55) pseudoephedrine sulfate [From Rynatan] Allergy (Verified 08/28/21 12:55) pyrilamine tannate [From Rynatan] Allergy (Verified 08/28/21 12:55) venlafaxine [From Effexor] Allergy (Verified 08/28/21 12:55) Home Medications: [place]-3 Fatty Acids/Fish Oil [Fish Oil 1,000 mg Softgel] 1 each PO DAILY 08/22 [History] Diclofenac Sodium [Voltaren] 75 mg PO BID 06/23/17 [History] Tizanidine HCl 2 mg PO TID 06/23/17 [History] Hx Tetanus, Diphtheria Vaccination/Date Given: Yes Hx Influenza Vaccination/Date Given: No Hx Pneumococcal Vaccination/Date Given: No Immunizations Up to Date: Yes Travel Risk - International Travel Have you traveled outside of the country in past 3 weeks: No - Coronavirus Screening Are you exhibiting any of the following symptoms?: No Close contact with a COVID-19 positive Pt in past 14-21 Days: No - Vaccine Status Have you recieved a Covid-19 vaccination: Yes 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[employer] - Vaccination Dates Date of 2cond Vaccination (if applicable): April 28, 2021 - Past Medical History Pertinent Past Medical History: Yes Neurological History: Migraines ENT History: No Pertinent History Cardiac History: Arrhythmia Respiratory History: No Pertinent History Endocrine Medical History: No Pertinent History Musculoskeletal History: Fibromyalgia, Osteoarthritis, Other GI Medical History: No Pertinent History History: No Pertinent History Psycho-Social History: Anxiety, Depression, Panic Disorder, Other Female Reproductive Disorders: No Pertinent History Other Medical History: PATIENT REPORTS ABNORMAL HEART BEAT THAT "JUST HAPPENS" BUT DOESN'T TAKE MEDICATIONS OR SEE A SPECIALIST. 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 PATIENT REPORTS ARTHRITIS IN 85% OF MY BODY. daphney beltranbret - Past Surgical History Past Surgical History: Yes Neuro Surgical History: No Pertinent History Cardiac: No Pertinent History Respiratory: No Pertinent History Gastrointestinal: Cholecystectomy Genitourinary: No Pertinent History Musculoskeletal: Orthopedic Surgery Female Surgical History: Hysterectomy, Dilation & Curettage, Section, Tubal Ligation, Other Other Surgical History: 3 LEEP, Lt knee surgery 2011, bilat foot surgeries - Social History Smoking Status: Former smoker How long have you smoked: 27 yrs Exposure to second hand smoke: Yes Drug Use: none Patient Lives Alone: No - Female History Hx Last Menstrual Period: hysterectomy 2017 Hx Now: No - Nursing Vital Signs Nursing Vital Signs: Initial Vital Signs Temperature 97.8 F 08/28/21 12:57 Pulse Rate 78 08/28/21 12:57 Respiratory Rate 18 08/28/21 12:57 Blood Pressure 139/80 08/28/21 12:57 O2 Sat by Pulse Oximetry 99 08/28/21 12:57 Pain Scale Pain Intensity 3 - Physical Exam SpO2: 98 - Course Nursing assessment & vital signs reviewed: Yes EKG Interpreted by Me: RATE (75), Sinus Rhythm, NORMAL AXIS, NORMAL INTERVALS Ordered Tests: Active Orders 24 hr Category Date Time Status [employer] STAT Care 08/28/21 13:18 Active EKG-ER Only STAT Care 08/28/21 13:17 Active IV Insertion STAT Care 08/28/21 13:17 Active Pulse Oximetry (ED) STAT Care 08/28/21 13:17 Active CHEST 1 VIEW (PORTABLE) Stat Exams 08/28/21 13:20 Completed CBC W DIFF Stat Lab 08/28/21 13:26 Completed CMP Stat Lab 08/28/21 13:26 Completed D-DIMER QUANTITATIVE Stat Lab 08/28/21 13:26 Completed LIPASE Stat Lab 08/28/21 13:26 Completed TROPONIN Q3H Lab 08/28/21 13:26 Completed TROPONIN Q3H Lab 08/28/21 16:30 Ordered TROPONIN Q3H Lab 08/28/21 19:30 Ordered TROPONIN Q3H Lab 08/28/21 22:30 Ordered TROPONIN Q3H Lab 08/29/21 01:30 Ordered Lab/Rad Data: Laboratory Result Diagrams 08/28/21 13:26 08/28/21 13:26 Laboratory Results 08/28/21 08/28/21 08/28/21 Range/Units 13:26 13:26 13:26 WBC (4.0-10.5) K/mm3 RBC (4.1-5.4) M/mm3 Hgb (12.0-16.0) gm/dl Hct (35-47) % MCV (78-100) fl MCH (26-32) pg MCHC (32-36) g/dl RDW (11.5-14.0) % Plt Count (150-450) K/mm3 MPV (7.5-11.0) fl Gran % (36.0-66.0) % Eos # (Auto) (0-0.5) Absolute Lymphs (auto) (1.0-4.6) Absolute Monos (auto) (0.0-1.3) Lymphocytes % (24.0-44.0) % Monocytes % (0.0-12.0) % Eosinophils % (0.00-5.0) % Basophils % (0.0-0.4) % Absolute Granulocytes (1.4-6.9) Basophils # (0-0.4) D-Dimer 355 (215-500) ng/mL Sodium 139 (137-145) mmol/L Potassium 3.9 (3.5-5.1) mmol/L Chloride 104 (98-107) mmol/L Carbon Dioxide 27 (22-30) mmol/L Anion Gap 12.6 (5-15) MEQ/L BUN 17 (7-17) mg/dL Creatinine 0.71 (0.52-1.04) mg/dL Estimated GFR > 60.0 ML/MIN Glucose 107 H (74-106) mg/dL Calcium 9.1 (8.4-10.2) mg/dL Total Bilirubin 0.40 (0.2-1.3) mg/dL AST 28 (14-36) U/L ALT 32 (0-35) U/L Alkaline Phosphatase 91 (38-126) U/L Troponin I < 0.012 (0.000-0.034) ng/mL Serum Total Protein 7.1 (6.3-8.2) g/dL Albumin 4.3 (3.5-5.0) g/dL Lipase 96 (23-300) U/L 08/28/21 Range/Units 13:26 WBC 6.3 (4.0-10.5) K/mm3 RBC 4.64 (4.1-5.4) M/mm3 Hgb 13.6 (12.0-16.0) gm/dl Hct 41.5 (35-47) % MCV 89.4 (78-100) fl MCH 29.3 (26-32) pg MCHC 32.8 (32-36) g/dl RDW 14.1 H (11.5-14.0) % Plt Count 225 (150-450) K/mm3 MPV 10.8 (7.5-11.0) fl Gran % 60.6 (36.0-66.0) % Eos # (Auto) 0.10 (0-0.5) Absolute Lymphs (auto) 1.84 (1.0-4.6) Absolute Monos (auto) 0.51 (0.0-1.3) Lymphocytes % 29.4 (24.0-44.0) % Monocytes % 8.2 (0.0-12.0) % Eosinophils % 1.6 (0.00-5.0) % Basophils % 0.2 (0.0-0.4) % Absolute Granulocytes 3.79 (1.4-6.9) Basophils # 0.01 (0-0.4) D-Dimer (215-500) ng/mL Sodium (137-145) mmol/L Potassium (3.5-5.1) mmol/L Chloride (98-107) mmol/L Carbon Dioxide (22-30) mmol/L Anion Gap (5-15) MEQ/L BUN (7-17) mg/dL Creatinine (0.52-1.04) mg/dL Estimated GFR ML/MIN Glucose (74-106) mg/dL Calcium (8.4-10.2) mg/dL Total Bilirubin (0.2-1.3) mg/dL AST (14-36) U/L ALT (0-35) U/L Alkaline Phosphatase (38-126) U/L Troponin I (0.000-0.034) ng/mL Serum Total Protein (6.3-8.2) g/dL Albumin (3.5-5.0) g/dL Lipase (23-300) U/L - Departure Referrals: JUSTUS FREGOSO [Primary Care Provider] - Follow up/PCP as directed
[2021-08-28 13:41] LABS: Absolute Neutrophil Ct (ANC) 3.79 (1.4-6.9); Basophil (Absolute #) 0.01 (0-0.4); Eosinophil % 1.6 % (0.00-5.0); Hematocrit 41.5 % (35-47); Hemoglobin 13.6 gm/dl (12.0-16.0); Lymphocyte (Absolute #) 1.84 (1.0-4.6); Lymphocytes % 29.4 % (24.0-44.0); Mean Cell Volume 89.4 fl (78-100); Mean Corpuscular Hemoglobin 29.3 pg (26-32); Mean Corpuscular Hgb Concent. 32.8 g/dl (32-36); Mean Platelet Volume 10.8 fl (7.5-11.0); Monocyte (Absolute #) 0.51 (0.0-1.3); Monocytes % 8.2 % (0.0-12.0); Neutrophil % 60.6 % (36.0-66.0); Platelet Count 225 K/mm3 (150-450); Red Blood Count 4.64 M/mm3 (4.1-5.4); Red Cell Distribution Width 14.1 % (11.5-14.0); White Blood Count 6.3 K/mm3 (4.0-10.5)
[2021-08-28 13:46] LABS: ALBUMIN 4.3 g/dL (3.5-5.0); ALKALINE PHOSPHATASE 91 U/L (38-126); ANION GAP 12.6 MEQ/L (5-15); BLOOD UREA NITROGEN 17 mg/dL (7-17); CHLORIDE 104 mmol/L (98-107); Calcium 9.1 mg/dL (8.4-10.2); Carbon Dioxide 27 mmol/L (22-30); Creatinine 1 0.71 mg/dL (0.52-1.04); EST GLOMERULAR FILTRATION RATE > 60.0 ML/MIN; Glucose 107 mg/dL (74-106); LIPASE 96 U/L (23-300); Potassium 3.9 mmol/L (3.5-5.1); SGOT/AST 28 U/L (14-36); SGPT/ALT 32 U/L (0-35); SODIUM 139 mmol/L (137-145); Total Protein 7.1 g/dL (6.3-8.2)
--- NOTE | 2021-08-28 13:53 | XRAY ---
Indication: Short of breath. Comparison: January 12, 2021. Portable chest again demonstrates normal heart and lungs. Bony thorax intact. No new/acute findings.
--- NOTE | 2021-08-28 14:37 | ERPHSYRPT ---
- History of Present Illness Time Seen by Provider: 08/28/21 13:00 Patient Subjective Stated Complaint: SOB Triage Nursing Assessment: Patient ambulated back to ED and transferred self to bed. Patient A+O X3. Patient's skin pink, warm and dry. Patient complains of SOB and cough for the past 4 days. Patient also complains of epigastric pain 4/10 for the past 4 days. Patient complains of headache and non productive cough. Lungs clear a/p mamadou. Physician History: Patient is a 36-year-old female presents to our ED with complaints of shortness of breath dry cough x4 days. Patient is also experiencing mild epigastric pain. Patient has history of reflux. No chest pain. No nausea vomiting or diaphoresis. No diarrhea. Slight headache. Symptoms are constant. Symptoms are moderate in intensity. No specific improving or worsening factors. Patient is otherwise healthy. She voices no other complaints or concerns at this time. Timing/Duration: today Severity: moderate Modifying Factors: Improves With: nothing Associated Symptoms: denies symptoms, No nausea, No vomiting, No diaphoresis, No headaches, No syncope, No seizure Allergies/Adverse Reactions: buspirone HCl [From BuSpar] Allergy (Mild, Verified 08/28/21 12:55) rash hives cefaclor [From Ceclor] Allergy (Mild, Verified 08/28/21 12:55) rash hives latex [Latex] Allergy (Mild, Verified 08/28/21 12:55) redness and swollen azatadine maleate [From Rynatan] Allergy (Verified 08/28/21 12:55) rash hives chlorpheniramine [From Rynatan] Allergy (Verified 08/28/21 12:55) chlorpheniramine tannate [From Rynatan] Allergy (Verified 08/28/21 12:55) phenylephrine tannate [From Rynatan] Allergy (Verified 08/28/21 12:55) pseudoephedrine sulfate [From Rynatan] Allergy (Verified 08/28/21 12:55) pyrilamine tannate [From Rynatan] Allergy (Verified 08/28/21 12:55) venlafaxine [From Effexor] Allergy (Verified 08/28/21 12:55) Home Medications: [place]-3 Fatty Acids/Fish Oil [Fish Oil 1,000 mg Softgel] 1 each PO DAILY 08/22/16 [History] Diclofenac Sodium [Voltaren] 75 mg PO BID 06/23/17 [History] Tizanidine HCl 2 mg PO TID 06/23/17 [History] Hx Tetanus, Diphtheria Vaccination/Date Given: Yes Hx Influenza Vaccination/Date Given: No Hx Pneumococcal Vaccination/Date Given: No Immunizations Up to Date: Yes Travel Risk - International Travel Have you traveled outside of the country in past 3 weeks: No - Coronavirus Screening Are you exhibiting any of the following symptoms?: No Close contact with a COVID-19 positive Pt in past 14-21 Days: No - Vaccine Status Have you recieved a Covid-19 vaccination: Yes 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: [employer] - Vaccination Dates Date of 2cond Vaccination (if applicable): April 28, 2021 - Review of Systems Constitutional: No Symptoms, No Fever, No Chills Eyes: No Symptoms Ears, Nose, & Throat: No Symptoms Respiratory: No Symptoms, No Cough, No Dyspnea Cardiac: No Symptoms, No Chest Pain, No Edema, No Syncope Abdominal/Gastrointestinal: No Symptoms, No Abdominal Pain, No Nausea, No Vomiting, No Diarrhea Genitourinary Symptoms: No Symptoms, No Dysuria Musculoskeletal: No Symptoms, No Back Pain, No Neck Pain Skin: No Symptoms, No Rash Neurological: No Symptoms, No Dizziness, No Focal Weakness, No Sensory Changes Psychological: No Symptoms Endocrine: No Symptoms Hematologic/Lymphatic: No Symptoms Immunological/Allergic: No Symptoms All Other Systems: Reviewed and Negative - Past Medical History Pertinent Past Medical History: Yes Neurological History: Migraines ENT History: No Pertinent History Cardiac History: Arrhythmia Respiratory History: No Pertinent History Endocrine Medical History: No Pertinent History Musculoskeletal History: Fibromyalgia, Osteoarthritis, Other GI Medical History: No Pertinent History History: No Pertinent History Psycho-Social History: Anxiety, Depression, Panic Disorder, Other Female Reproductive Disorders: No Pertinent History Other Medical History: PATIENT REPORTS ABNORMAL HEART BEAT THAT "JUST HAPPENS" BUT DOESN'T TAKE MEDICATIONS OR SEE A SPECIALIST. 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 PATIENT REPORTS ARTHRITIS IN 85% OF MY BODY. daphney howell - Past Surgical History Past Surgical History: Yes Neuro Surgical History: No Pertinent History Cardiac: No Pertinent History Respiratory: No Pertinent History Gastrointestinal: Cholecystectomy Genitourinary: No Pertinent History Musculoskeletal: Orthopedic Surgery Female Surgical History: Hysterectomy, Dilation & Curettage, Section, Tubal Ligation, Other Other Surgical History: 3 LEEP, Lt knee surgery 2011, bilat foot surgeries - Social History Smoking Status: Former smoker How long have you smoked: 27 yrs Exposure to second hand smoke: Yes Drug Use: none Patient Lives Alone: No - Female History Hx Last Menstrual Period: hysterectomy 2017 Hx Now: No - Nursing Vital Signs Nursing Vital Signs: Initial Vital Signs Temperature 97.8 F 08/28/21 12:57 Pulse Rate 78 08/28/21 12:57 Respiratory Rate 18 08/28/21 12:57 Blood Pressure 139/80 08/28/21 12:57 O2 Sat by Pulse Oximetry 99 08/28/21 12:57 Pain Scale Pain Intensity 3 - Physical Exam General Appearance: no apparent distress, alert Eye Exam: PERRL/EOMI, eyes nml inspection Ears, Nose, Throat Exam: normal ENT inspection, TMs normal, pharynx normal, moist mucous membranes Neck Exam: normal inspection, non-tender, supple, full range of motion Respiratory Exam: normal breath sounds, lungs clear, airway intact, other (Chest wall tenderness palpation. Palpation reproduces symptoms.), No respiratory distress Cardiovascular Exam: regular rate/rhythm, normal heart sounds, normal peripheral pulses Gastrointestinal/Abdomen Exam: soft, normal bowel sounds, No tenderness, No mass Back Exam: normal inspection, normal range of motion, No CVA tenderness, No vertebral tenderness Extremity Exam: normal inspection, normal range of motion, pelvis stable Neurologic Exam: alert, oriented x 3, cooperative, normal mood/affect, nml cer ebellar function, nml station & gait, sensation nml, No motor deficits Skin Exam: normal color, warm, dry, No rash Lymphatic Exam: No adenopathy SpO2 Interpretation: normal SpO2: 97 O2 Delivery: Room Air - Course Nursing assessment & vital signs reviewed: Yes - Radiology Exams Chest X-ray Interpretation: Teleradiologist Report (Portable chest again demonstrates normal heart and lungs. Bony thorax intact. No new acute findings) Ordered Tests: Active Orders 24 hr Category Date Time Status Genetic Physician STAT Care 08/28/21 13:18 Active EKG-ER Only STAT Care 08/28/21 13:17 Active IV Insertion STAT Care 08/28/21 13:17 Active Pulse Oximetry (ED) STAT Care 08/28/21 13:17 Active CHEST 1 VIEW (PORTABLE) Stat Exams 08/28/21 13:20 Completed CBC W DIFF Stat Lab 08/28/21 13:26 Completed CMP Stat Lab 08/28/21 13:26 Completed D-DIMER QUANTITATIVE Stat Lab 08/28/21 13:26 Completed LIPASE Stat Lab 08/28/21 13:26 Completed TROPONIN Q3H Lab 08/28/21 13:26 Completed TROPONIN Q3H Lab 08/28/21 16:30 Ordered TROPONIN Q3H Lab 08/28/21 19:30 Ordered TROPONIN Q3H Lab 08/28/21 22:30 Ordered TROPONIN Q3H Lab 08/29/21 01:30 Ordered Lab/Rad Data: Laboratory Result Diagrams 08/28/21 13:26 08/28/21 13:26 Laboratory Results 08/28/21 08/28/21 08/28/21 Range/Units 13:26 13:26 13:26 WBC (4.0-10.5) K/mm3 RBC (4.1-5.4) M/mm3 Hgb (12.0-16.0) gm/dl Hct (35-47) % MCV (78-100) fl MCH (26-32) pg MCHC (32-36) g/dl RDW (11.5-14.0) % Plt Count (150-450) K/mm3 MPV (7.5-11.0) fl Gran % (36.0-66.0) % Eos # (Auto) (0-0.5) Absolute Lymphs (auto) (1.0-4.6) Absolute Monos (auto) (0.0-1.3) Lymphocytes % (24.0-44.0) % Monocytes % (0.0-12.0) % Eosinophils % (0.00-5.0) % Basophils % (0.0-0.4) % Absolute Granulocytes (1.4-6.9) Basophils # (0-0.4) D-Dimer 355 (215-500) ng/mL Sodium 139 (137-145) mmol/L Potassium 3.9 (3.5-5.1) mmol/L Chloride 104 (98-107) mmol/L Carbon Dioxide 27 (22-30) mmol/L Anion Gap 12.6 (5-15) MEQ/L BUN 17 (7-17) mg/dL Creatinine 0.71 (0.52-1.04) mg/dL Estimated GFR > 60.0 ML/MIN Glucose 107 H (74-106) mg/dL Calcium 9.1 (8.4-10.2) mg/dL Total Bilirubin 0.40 (0.2-1.3) mg/dL AST 28 (14-36) U/L ALT 32 (0-35) U/L Alkaline Phosphatase 91 (38-126) U/L Troponin I < 0.012 (0.000-0.034) ng/mL Serum Total Protein 7.1 (6.3-8.2) g/dL Albumin 4.3 (3.5-5.0) g/dL Lipase 96 (23-300) U/L 08/28/21 Range/Units 13:26 WBC 6.3 (4.0-10.5) K/mm3 RBC 4.64 (4.1-5.4) M/mm3 Hgb 13.6 (12.0-16.0) gm/dl Hct 41.5 (35-47) % MCV 89.4 (78-100) fl MCH 29.3 (26-32) pg MCHC 32.8 (32-36) g/dl RDW 14.1 H (11.5-14.0) % Plt Count 225 (150-450) K/mm3 MPV 10.8 (7.5-11.0) fl Gran % 60.6 (36.0-66.0) % Eos # (Auto) 0.10 (0-0.5) Absolute Lymphs (auto) 1.84 (1.0-4.6) Absolute Monos (auto) 0.51 (0.0-1.3) Lymphocytes % 29.4 (24.0-44.0) % Monocytes % 8.2 (0.0-12.0) % Eosinophils % 1.6 (0.00-5.0) % Basophils % 0.2 (0.0-0.4) % Absolute Granulocytes 3.79 (1.4-6.9) Basophils # 0.01 (0-0.4) D-Dimer (215-500) ng/mL Sodium (137-145) mmol/L Potassium (3.5-5.1) mmol/L Chloride (98-107) mmol/L Carbon Dioxide (22-30) mmol/L Anion Gap (5-15) MEQ/L BUN (7-17) mg/dL Creatinine (0.52-1.04) mg/dL Estimated GFR ML/MIN Glucose (74-106) mg/dL Calcium (8.4-10.2) mg/dL Total Bilirubin (0.2-1.3) mg/dL AST (14-36) U/L ALT (0-35) U/L Alkaline Phosphatase (38-126) U/L Troponin I (0.000-0.034) ng/mL Serum Total Protein (6.3-8.2) g/dL Albumin (3.5-5.0) g/dL Lipase (23-300) U/L - Progress Progress: improved Progress Note: Patient reassessed. Work-up essentially nonremarkable. D-dimer negative. Troponin negative. Chest x-ray negative. Vital stable. No indication for further work-up at this time. Will discharge home. Patient recently had her TSH checked. TSH was reported as normal per patient. Patient will follow up with Dr. Naidu within 48 hours for reevaluation. She voices no other complaints or concerns at this time. Patient's chest pain is reproduced with palpation to anterior chest wall. Patient has history of fibromyalgia. Findings may be a fibromyalgia flareup Portions of this note were created with voice recognition technology. There may be grammatical, spelling, punctuation or sound alike errors. 08/28/21 15:34 08/28/21 15:35 Counseled pt/family regarding: lab results - Departure Departure Disposition: Home Clinical Impression: Chest wall pain Condition: Stable Critical Care Time: No Referrals: JUSTUS NAIDU [Primary Care Provider] - Follow up/PCP as directed Additional Instructions: Discharge/Care Plan AMADA MARTINEZ CHAPINCITO was seen on 08/28/21 in the Emergency Room. The patient was counseled regarding Diagnosis,Lab results, Imaging studies, need for follow up and when to return to the Emergency Room. Prescriptions given: Discharge Note I have spoken with the patient and/or caregivers. I have explained the patient's condition, diagnosis and treatment plan based on the information available to me at this time. I have answered the patient's and/or caregiver's questions and addressed any concerns. The patient and/or caregivers have as good understanding of the patient's diagnosis, condition and treatment plan as can be expected at this point. The vital signs have been stable. The patient's condition is stable and appropriate for discharge from the emergency department. The patient will pursue further outpatient evaluation with the primary care physician or other designated or consulting physician as outlined in the discharge instructions. The patient and/or caregivers are agreeable to this plan of care and follow-up instructions have been explained in detail. The patient and/or caregivers have received these instruction. The patient/and or caregivers are aware that any significant change in condition or worsening of symptoms should prompt an immediate return to this or the closest emergency department or call 911.
[2021-08-28 15:43] VITALS: BP 129/74; PULSE 80; O2SAT 98
== END 2021-08-28 15:47 | disposition home or self-care (01) ==
LOC: ED 12:51
DX: R07.89 Other chest pain (principal); R06.02 Shortness of breath; R05.9 Cough, unspecified; R10.13 Epigastric pain; R51.9 Headache, unspecified; Q79.60 Ehlers-Danlos syndrome, unspecified; I49.9 Cardiac arrhythmia, unspecified; F41.9 Anxiety disorder, unspecified; Z79.899 Other long term (current) drug therapy
CPT/HCPCS: 36000; 36415; 71045; 80053; 83690; 84484; 85025; 85379; 93005; 93041; 94760; 99284

== ENCOUNTER 2022-10-08 14:48 | Emergency (ER) | payer OTHER ==
[2022-10-08 15:08] VITALS: O2SAT 100
[2022-10-08] MEDS ORDERED: TORAdol 30 mg Injection IM ONE (15:28)
[2022-10-08] MEDS ORDERED: TORAdol 30 mg Injection ONE (15:46)
--- NOTE | 2022-10-08 16:31 | XRAY ---
Indication: Pain base of neck. Severe headache. Multiple contiguous axial images obtained through the cervical spine. Sagittal and coronal reformatted images obtained. Comparison: Cervical radiograph August 12, 2020. Axial images negative for acute fracture, suspicious bony lesions, or spinal canal stenosis. Minimal C5-C6 degenerative endplate spurring. Facets are symmetric. Sagittal and coronal reformatted images again demonstrates lordotic straightening. Vertebral body heights/disc spaces maintained. No acute compression fracture, subluxation, or jumped facet. Normal appearing craniocervical junction. Visualized noncontrasted soft tissues are unremarkable. Impression: Minimal C5-C6 degenerative changes and cervical lordotic straightening. Remaining CT cervical spine is negative.
--- NOTE | 2022-10-08 16:44 | ERPHSYRPT ---
- History of Present Illness Time Seen by Provider: 10/08/22 15:15 Source: patient Exam Limitations: no limitations Patient Subjective Stated Complaint: C/O intermittent neck pain that is a "pulsing" pain. It causes headaches. Onset: 3-4 weeks Triage Nursing Assessment: Patient ambulated back to ER without difficulties. No SOB. MCCLURE WNL. SHe is alert and oriented. Physician History: Patient is a 37-year-old white female who presents with a complaint of neck pain especially with flexion or extension. She says it feels like the blood vessels in her neck are being pinched off this pain is followed by a severe headache. She has had it for 3 to 4 weeks she does have a history of migraines. She denies any known trauma she does have some disc degenerative disc disease in other areas of the spine. Timing/Duration: week(s) (3-4 weeks) Method of Injury: unknown Quality: sharp Back Pain Location: C-spine Severity of Pain-Max: moderate Severity of Pain-Current: moderate Modifying Factors: Improves With: movement Associated Symptoms: denies symptoms Previous symptoms: same symptoms as today Allergies/Adverse Reactions: buspirone HCl [From BuSpar] Allergy (Mild, Verified 10/08/22 14:55) rash hives cefaclor [From Ceclor] Allergy (Mild, Verified 10/08/22 14:55) rash hives latex [Latex] Allergy (Mild, Verified 10/08/22 14:55) redness and swollen azatadine maleate [From Rynatan] Allergy (Verified 10/08/22 14:55) rash hives chlorpheniramine [From Rynatan] Allergy (Verified 10/08/22 14:55) chlorpheniramine tannate [From Rynatan] Allergy (Verified 10/08/22 14:55) Influenza Virus Vaccines Allergy (Verified 10/08/22 15:17) phenylephrine tannate [From Rynatan] Allergy (Verified 10/08/22 14:55) pseudoephedrine sulfate [From Rynatan] Allergy (Verified 10/08/22 14:55) pyrilamine tannate [From Rynatan] Allergy (Verified 10/08/22 14:55) venlafaxine [From Effexor] Allergy (Verified 10/08/22 14:55) Home Medications: Celoron-3 Fatty Acids/Fish Oil [Fish Oil 1,000 mg Softgel] 1 each PO DAILY 08/22/16 [History] Diclofenac Sodium [Voltaren] 75 mg PO BID 06/23/17 [History] Tizanidine HCl 2 mg PO TID 06/23/17 [History] Hx Tetanus, Diphtheria Vaccination/Date Given: Yes Hx Influenza Vaccination/Date Given: No (allergic) Hx Pneumococcal Vaccination/Date Given: No Immunizations Up to Date: Yes Travel Risk - International Travel Have you traveled outside of the country in past 3 weeks: No - Coronavirus Screening Are you exhibiting any of the following symptoms?: No Close contact with a COVID-19 positive Pt in past 14-21 Days: No - Vaccine Status Have you recieved a Covid-19 vaccination: Yes [employer]ch [employer]: [employer] - Vaccination Dates Date of 2cond Vaccination (if applicable): April 28, 2021 - Review of Systems Constitutional: No Fever, No Chills Eyes: No Symptoms Ears, Nose, & Throat: No Symptoms Respiratory: No Cough, No Dyspnea Cardiac: No Chest Pain, No Edema, No Syncope Abdominal/Gastrointestinal: No Abdominal Pain, No Nausea, No Vomiting, No Diarrhea Genitourinary Symptoms: No Dysuria Musculoskeletal: Neck Pain, No Back Pain Skin: No Rash Neurological: No Dizziness, No Focal Weakness, No Sensory Changes Psychological: No Symptoms Endocrine: No Symptoms All Other Systems: Reviewed and Negative - Past Medical History Pertinent Past Medical History: Yes Neurological History: Migraines ENT History: No Pertinent History Cardiac History: Arrhythmia Respiratory History: No Pertinent History Endocrine Medical History: No Pertinent History Musculoskeletal History: Degenerative Disk Disease, Fibromyalgia, Osteoarthritis, Other GI Medical History: No Pertinent History History: No Pertinent History Psycho-Social History: Anxiety, Depression, Panic Disorder, Other Female Reproductive Disorders: No Pertinent History Other Medical History: PATIENT REPORTS ABNORMAL HEART BEAT THAT "JUST HAPPENS" BUT DOESN'T TAKE MEDICATIONS OR SEE A SPECIALIST. 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 PATIENT REPORTS ARTHRITIS IN 85% OF MY BODY. daphney howell - Past Surgical History Past Surgical History: Yes Neuro Surgical History: No Pertinent History Cardiac: No Pertinent History Respiratory: No Pertinent History Gastrointestinal: Cholecystectomy Genitourinary: No Pertinent History Musculoskeletal: Orthopedic Surgery Female Surgical History: Hysterectomy, Dilation & Curettage, Section, Tubal Ligation, Other Other Surgical History: 3 LEEP, Lt knee surgery 2012, bilat foot surgeries - Social History Smoking Status: Former smoker How long have you smoked: 27 yrs Exposure to second hand smoke: Yes Drug Use: none Patient Lives Alone: No - Female History Hx Now: No - Nursing Vital Signs Nursing Vital Signs: Initial Vital Signs Temperature 97.8 F 10/08/22 14:55 Pulse Rate 78 10/08/22 14:55 Respiratory Rate 18 10/08/22 14:55 Blood Pressure 127/95 10/08/22 14:55 O2 Sat by Pulse Oximetry 100 10/08/22 14:55 Pain Scale Pain Intensity [NECK/HEAD] 4 Pain Intensity 5 - Physical Exam General Appearance: mild distress, alert Eye Exam: PERRL/EOMI, eyes nml inspection Neck Exam: normal inspection, non-tender, supple, full range of motion, No meningismus, No midline tenderness Respiratory Exam: normal breath sounds, lungs clear, No respiratory distress Cardiovascular Exam: regular rate/rhythm, normal heart sounds Gastrointestinal Exam: soft, No tenderness, No mass Extremity Exam: normal inspection, normal range of motion, No calf tenderness, No pedal edema Neurologic Exam: alert, oriented x 3, cooperative, shot man II-XII nml as tested, normal mood/affect, nml station & gait, sensation nml, No motor deficits Skin Exam: normal color, warm, dry, No rash SpO2 Interpretation: normal SpO2: 100 O2 Delivery: Room Air - Course Nursing assessment & vital signs reviewed: Yes - CT Exams Cervical Spine CT Interpretation: Other (CT scan reviewed by me shows degenerative changes at C5-6 and lordotic straightening consistent with muscle spasm) Ordered Tests: Active Orders 24 hr Category Date Time Status CERVICAL SPINE WO CONTRAST [CT] Stat Exams 10/08/22 14:58 Completed Medication Summary Discontinued Medications Generic Name Dose Route Start Last Admin Trade Name Freq PRN Reason Stop Dose Admin Ketorolac Tromethamine 30 mg 10/08/22 15:28 10/08/22 15:47 Ketorolac Tromethamine 30 Mg/Ml Inj IM 10/08/22 15:29 30 mg STAT ONE Administration Ketorolac Tromethamine Confirm 10/08/22 15:46 Ketorolac Tromethamine 30 Mg/Ml Inj Administered 10/08/22 15:47 Dose 30 mg .ROUTE .STK-MED ONE - Progress Progress: unchanged Medical Desision Making - Diagnostic Testing Diagnostic test were ordered, analyzed, and reviewed by me: Yes Radiological Interpretation: Reviewed by me - Risk of complications Low Risk: Low risk of morbidity from additional dx testing or treatment - Departure Departure Disposition: Home Clinical Impression: Neck pain Condition: Stable Critical Care Time: No Referrals: JUSTUS FREGOSO [Primary Care Provider] - Follow up/PCP as directed Prescriptions: Cyclobenzaprine HCl 10 mg [Flexeril 10 MG] 10 mg PO TID #12 tablet Diclofenac Sodium 50 mg [Voltaren 50 mg] 50 mg PO Q8H 10 Days #30 tab
[2022-10-08 17:17] VITALS: PULSE 70
[2022-10-08 17:18] VITALS: BP 117/82
== END 2022-10-08 17:18 | disposition home or self-care (01) ==
LOC: ED 14:48
DX: M54.2 Cervicalgia (principal); R51.9 Headache, unspecified; Z79.899 Other long term (current) drug therapy
CPT/HCPCS: 72125; 96372; 99283; J1885

== ENCOUNTER 2023-05-26 09:28 | Emergency (ER) | payer OTHER ==
[2023-05-26 09:45] VITALS: TEMP 97.8
[2023-05-26] MEDS ORDERED: Norflex 60 MG/2 ML IM ONE (09:56)
[2023-05-26] MEDS ORDERED: TORAdol 30 mg Injection IM ONE (09:56)
[2023-05-26] MEDS ORDERED: Norflex 60 MG/2 ML ONE (09:57)
[2023-05-26] MEDS ORDERED: TORAdol 30 mg Injection ONE (09:57)
--- NOTE | 2023-05-26 10:30 | ERPHSYRPT ---
- History of Present Illness Time Seen by Provider: 05/26/23 10:03 Source: patient Exam Limitations: no limitations Patient Subjective Stated Complaint: C/O lower back pain that started yesterday evening. Patient described pain as "back spasms" and "pulsating." Patient states she has had back spasms before and that is what this feels like to her. Triage Nursing Assessment: Patient ambulated back to ER holding lower back on both sides; she does indicate that the majority of her pain is on the left side. She is alert and oriented. No SOB. SKin tone normal. Patient is grimacing and is restless. Physician History: 38 years old female presenting to the ER with chief complaint of left lower back pain/muscle spasm after she lifted at work. This started 2 days ago and since yesterday having constant pain moderate to severe sharp nonradiating without any numbness tingling weakness of lower extremities or loss of bowel or bladder control/perineal numbness. Patient denies any midline back pain. Reports having similar symptoms in the past. Allergies/Adverse Reactions: buspirone HCl [From BuSpar] Allergy (Mild, Verified 05/26/23 09:34) rash hives cefaclor [From Ceclor] Allergy (Mild, Verified 05/26/23 09:34) rash hives latex [Latex] Allergy (Mild, Verified 05/26/23 09:34) redness and swollen azatadine maleate [From Rynatan] Allergy (Verified 05/26/23 09:34) rash hives chlorpheniramine [From Rynatan] Allergy (Verified 05/26/23 09:34) chlorpheniramine tannate [From Rynatan] Allergy (Verified 05/26/23 09:34) Influenza Virus Vaccines Allergy (Verified 05/26/23 09:34) phenylephrine tannate [From Rynatan] Allergy (Verified 05/26/23 09:34) pseudoephedrine sulfate [From Rynatan] Allergy (Verified 05/26/23 09:34) pyrilamine tannate [From Rynatan] Allergy (Verified 05/26/23 09:34) venlafaxine [From Effexor] Allergy (Verified 05/26/23 09:34) Hx Tetanus, Diphtheria Vaccination/Date Given: Yes Hx Influenza Vaccination/Date Given: No (allergic) Hx Pneumococcal Vaccination/Date Given: No Immunizations Up to Date: Yes Travel Risk - International Travel Have you traveled outside of the country in past 3 weeks: No - Coronavirus Screening Are you exhibiting any of the following symptoms?: No Close contact with a COVID-19 positive Pt in past 14-21 Days: No - Vaccine Status Have you recieved a Covid-19 vaccination: Yes 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[employer] - Vaccination Dates Date of 2cond Vaccination (if applicable): April 28, 2021 - Review of Systems Constitutional: No Symptoms Ears, Nose, & Throat: No Symptoms Respiratory: No Symptoms Cardiac: No Symptoms Abdominal/Gastrointestinal: No Symptoms Genitourinary Symptoms: No Symptoms Musculoskeletal: Back Pain Skin: No Symptoms Neurological: No Symptoms Hematologic/Lymphatic: No Symptoms Immunological/Allergic: No Symptoms - Past Medical History Pertinent Past Medical History: Yes Neurological History: Migraines ENT History: No Pertinent History Cardiac History: Arrhythmia Respiratory History: No Pertinent History Endocrine Medical History: No Pertinent History Musculoskeletal History: Degenerative Disk Disease, Fibromyalgia, Osteoarthritis, Other GI Medical History: Gallbladder Disease History: No Pertinent History Psycho-Social History: Anxiety, Depression, Panic Disorder, Other Female Reproductive Disorders: No Pertinent History Other Medical History: LEVOSCOLIOSIS PER XRAY LOWER THORACIC WITH MILD WEDGING T11-12. - Past Surgical History Past Surgical History: Yes Neuro Surgical History: No Pertinent History Cardiac: No Pertinent History Respiratory: No Pertinent History Gastrointestinal: Cholecystectomy Genitourinary: No Pertinent History Musculoskeletal: Orthopedic Surgery Female Surgical History: Hysterectomy, Dilation & Curettage, Section, Tubal Ligation, Other Other Surgical History: 3 LEEP, Lt knee surgery 2011, bilat foot surgeries - Social History Smoking Status: Former smoker How long have you smoked: 27 yrs Exposure to second hand smoke: Yes Drug Use: none Patient Lives Alone: No - Female History Hx Last Menstrual Period: No longer has them Hx Now: No (hysterectomy) - Nursing Vital Signs Nursing Vital Signs: Initial Vital Signs Temperature 97.8 F 05/26/23 09:29 Pulse Rate 108 H 05/26/23 09:29 Respiratory Rate 20 05/26/23 09:29 Blood Pressure 128/89 05/26/23 09:29 O2 Sat by Pulse Oximetry 97 05/26/23 09:29 Pain Scale Pain Intensity [Lower back 8 pain] Pain Intensity 4 - Physical Exam General Appearance: no apparent distress, alert Eye Exam: PERRL/EOMI Neck Exam: normal inspection, full range of motion Respiratory Exam: normal breath sounds, lungs clear Cardiovascular Exam: regular rate/rhythm, normal heart sounds Gastrointestinal Exam: soft, normal bowel sounds, No tenderness Back Exam: normal inspection, muscle spasm, point tenderness (Left lumbar paraspinal area), No CVA tenderness, No vertebral tenderness Extremity Exam: normal inspection, normal range of motion, pelvis stable Neurologic Exam: alert, oriented x 3, cooperative, science liaison II-XII nml as tested, normal mood/affect, nml cerebellar function, sensation nml, motor deficits Skin Exam: normal color SpO2 Interpretation: normal SpO2: 97 O2 Delivery: Room Air Ordered Tests: Medication Summary Discontinued Medications Generic Name Dose Route Start Last Admin Trade Name Jessica PRN Reason Stop Dose Admin Ketorolac Tromethamine 30 mg 05/26/23 09:56 05/26/23 09:58 Ketorolac Tromethamine 30 Mg/Ml Inj IM 05/26/23 09:57 30 mg STAT ONE Administration Ketorolac Tromethamine Confirm 05/26/23 09:57 Ketorolac Tromethamine 30 Mg/Ml Inj Administered 05/26/23 09:58 Dose 30 mg .ROUTE .STK-MED ONE Orphenadrine Citrate 60 mg 05/26/23 09:56 05/26/23 09:58 Orphenadrine Citrate 60 Mg/2 Ml Vial IM 05/26/23 09:57 60 mg STAT ONE Administration Orphenadrine Citrate Confirm 05/26/23 09:57 Orphenadrine Citrate 60 Mg/2 Ml Vial Administered 05/26/23 09:58 Dose 60 mg .ROUTE .STK-MED ONE - Progress Progress: improved, pain not gone completely, re-examined Progress Note: 05/26/23 10:29 38 years old female presenting to the ER with chief complaint of left lower back pain/muscle spasm after she lifted at work. This started 2 days ago and since yesterday having constant pain moderate to severe sharp nonradiating without any numbness tingling weakness of lower extremities or loss of bowel or bladder control/perineal numbness. Patient denies any midline back pain. Reports having similar symptoms in the past. 05/26/23 11:26 She is given Norflex and Toradol for symptomatic relief, on reevaluation pain is much improved. Patient is able to ambulate in the ER without any limitation/assistance. He has negative neuro exam in lower extremities. Do not think needs imaging or any other work-up and is more pain in the left paraspinal lumbar area. It is muscle spasms. She does not have any midline tenderness at all. I would continue with NSAIDs and muscle relaxants to go home and outpatient follow-up recommended. Discussed signs symptoms of worsening needing return to ER which she seems understanding. Stable for discharge. Counseled pt/family regarding: diagnosis, need for follow-up Medical Desision Making - Diagnostic Testing Diagnostic test were ordered, analyzed, and reviewed by me: Yes - Risk of complications The pt has a mod risk of morbidity or mortality based on: Need for prescription drug management - Departure Departure Disposition: Home Clinical Impression: Spasm of muscle of lower back Condition: Stable Critical Care Time: No Referrals: JUSTUS FREGOSO [Primary Care Provider] - Follow up with PCP 1 day Instructions: Low Back Pain (DC) Additional Instructions: Take Tylenol/ibuprofen as needed along with muscle relaxants. Follow-up with primary care for reevaluation. Return to ER for worsening pain or if having numbness tingling weakness of lower extremities/loss of bowel or bladder control/perineal numbness etc. Avoid exertional activities. Prescriptions: Ibuprofen 600 mg PO Q6HPRN PRN 10 Days #20 tablet PRN Reason: Pain Cyclobenzaprine HCl 10 mg [Flexeril 10 MG] 10 mg PO TID #20 tablet
[2023-05-26 11:16] VITALS: BP 114/76; PULSE 88; RESP 16
[2023-05-26 11:29] VITALS: O2SAT 97
== END 2023-05-26 11:35 | disposition home or self-care (01) ==
LOC: ED 09:28
DX: M62.830 Muscle spasm of back (principal); M54.50 Low back pain, unspecified
CPT/HCPCS: 96372; 99283; J1885; J2360

== ENCOUNTER 2023-10-06 22:31 | Emergency (ER) | payer OTHER ==
--- NOTE | 2023-10-06 22:37 | ERPHSYRPT ---
- History of Present Illness Time Seen by Provider: 10/06/23 22:36 Source: patient, family Exam Limitations: no limitations Physician History: pt seen for complaint of anxiety and flashes of chills, no actual CP but this could be atypical variant, metallic taste so checking Covid. Chest clear Ht with syt M and mid syst click. Abd soft nontender without peritoneal signs of mass. ext without edema. Normal neuro exam and normal mental status. Daughter is here as confirming independent source of Hx. discussed risks/benefits with pt and family of cxr, EKG, trop,BNP., CBC, T4, TSH, CMP, UA, IVF, Lactate, covid, RSV, FLu, and they wish to proceed, so these are ordered. results discussed. also hx afib controlled on metoprolol and ASA. Timing/Duration: today Severity: moderate Associated Symptoms: nausea Allergies/Adverse Reactions: azatadine maleate [From Rynatan] Allergy (Intermediate, Verified 10/07/23 00:40) rash hives buspirone HCl [From BuSpar] Allergy (Mild, Verified 10/07/23 00:40) rash hives cefaclor [From Ceclor] Allergy (Mild, Verified 10/07/23 00:40) rash hives latex [Latex] Allergy (Mild, Verified 10/07/23 00:40) redness and swollen chlorpheniramine [From Rynatan] Allergy (Unknown, Verified 10/07/23 00:40) chlorpheniramine tannate [From Rynatan] Allergy (Unknown, Verified 10/07/23 00:40) Influenza Virus Vaccines Allergy (Unknown, Verified 10/07/23 00:40) phenylephrine tannate [From Rynatan] Allergy (Unknown, Verified 10/07/23 00:40) pseudoephedrine sulfate [From Rynatan] Allergy (Unknown, Verified 10/07/23 00: 40) pyrilamine tannate [From Rynatan] Allergy (Unknown, Verified 10/07/23 00:40) venlafaxine [From Effexor] Allergy (Verified 10/07/23 00:40) Hx Tetanus, Diphtheria Vaccination/Date Given: Yes Hx Influenza Vaccination/Date Given: No (allergic) Hx Pneumococcal Vaccination/Date Given: No Travel Risk - Vaccine Status Have you recieved a Covid-19 vaccination: Yes 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: [employer] - Vaccination Dates Date of 2cond Vaccination (if applicable): April 28, 2021 - Review of Systems Constitutional: Chills, No Fever Eyes: No Symptoms Ears, Nose, & Throat: No Symptoms Respiratory: No Cough, No Dyspnea Cardiac: Palpitations, No Chest Pain, No Edema, No Syncope Abdominal/Gastrointestinal: No Abdominal Pain, No Nausea, No Vomiting, No Diarrhea Genitourinary Symptoms: No Dysuria Musculoskeletal: No Back Pain, No Neck Pain Skin: No Rash Neurological: No Dizziness, No Focal Weakness, No Sensory Changes Psychological: No Symptoms Endocrine: No Symptoms All Other Systems: Reviewed and Negative - Past Medical History Pertinent Past Medical History: Yes Neurological History: Migraines ENT History: No Pertinent History Cardiac History: Arrhythmia Respiratory History: No Pertinent History Endocrine Medical History: No Pertinent History Musculoskeletal History: Degenerative Disk Disease, Fibromyalgia, Osteoarthritis, Other GI Medical History: Gallbladder Disease History: No Pertinent History Psycho-Social History: Anxiety, Depression, Panic Disorder, Other Female Reproductive Disorders: No Pertinent History Other Medical History: LEVOSCOLIOSIS PER XRAY LOWER THORACIC WITH MILD WEDGING T11-12. - Past Surgical History Past Surgical History: Yes Neuro Surgical History: No Pertinent History Cardiac: No Pertinent History Respiratory: No Pertinent History Gastrointestinal: Cholecystectomy Genitourinary: No Pertinent History Musculoskeletal: Orthopedic Surgery Female Surgical History: Hysterectomy, Dilation & Curettage, Section, Tubal Ligation, Other Other Surgical History: 3 LEEP, Lt knee surgery 2011, bilat foot surgeries - Social History Smoking Status: Former smoker How long have you smoked: 27 yrs Exposure to second hand smoke: Yes Drug Use: none Patient Lives Alone: No - Nursing Vital Signs Nursing Vital Signs: Initial Vital Signs Temperature 98.8 F 10/07/23 00:23 Pulse Rate 82 10/07/23 00:23 Respiratory Rate 16 10/07/23 00:23 Blood Pressure 141/77 10/07/23 00:23 O2 Sat by Pulse Oximetry 99 10/07/23 00:23 Pain Scale Pain Intensity 3 - Physical Exam General Appearance: no apparent distress, alert Eye Exam: PERRL/EOMI, eyes nml inspection Ears, Nose, Throat Exam: normal ENT inspection, TMs normal, pharynx normal, moist mucous membranes Neck Exam: normal inspection, non-tender, supple, full range of motion Respiratory Exam: normal breath sounds, lungs clear, No respiratory distress Cardiovascular Exam: regular rate/rhythm, normal heart sounds, normal peripheral pulses Gastrointestinal/Abdomen Exam: soft, normal bowel sounds, No tenderness, No mass Pelvic Exam: deferred Rectal Exam: deferred Back Exam: normal inspection, normal range of motion, No CVA tenderness, No vertebral tenderness Extremity Exam: normal inspection, normal range of motion, pelvis stable Neurologic Exam: alert, oriented x 3, cooperative, normal mood/affect, nml cerebellar function, nml station & gait, sensation nml, No motor deficits Skin Exam: normal color, warm, dry, No rash Lymphatic Exam: No adenopathy SpO2 Interpretation: normal SpO2: 99 O2 Delivery: Room Air - Course Nursing assessment & vital signs reviewed: Yes EKG Interpreted by Me: Sinus Rhythm, NORMAL AXIS, NORMAL INTERVALS, NORMAL QRS, Non-specific ST Changes - Radiology Exams Chest X-ray Interpretation: Reviewed by me, Other (minor interstitial infiltrates) Ordered Tests: Active Orders 24 hr Category Date Time Status Whale Trainer STAT Care 10/07/23 00:35 Active EKG-ER Only STAT Care 10/07/23 00:34 Active IV Insertion STAT Care 10/07/23 00:34 Active Pulse Oximetry (ED) STAT Care 10/07/23 00:34 Active CHEST 1 VIEW (PORTABLE) Stat Exams 10/07/23 00:35 Taken CBC W DIFF Stat Lab 10/07/23 01:04 Completed CMP Stat Lab 10/07/23 01:04 Completed D-DIMER QUANTITATIVE Stat Lab 10/07/23 01:04 Completed HCG QUALITATIVE, SERUM Stat Lab 10/07/23 01:04 Completed Lactic Acid Stat Lab 10/07/23 01:00 Completed NT PRO BNPII Stat Lab 10/07/23 01:04 Completed TROPONIN Q4H Lab 10/07/23 01:04 Completed TROPONIN Q4H Lab 10/07/23 04:45 Ordered TROPONIN Q4H Lab 10/07/23 08:45 Ordered TSH, 3RD Generation Stat Lab 10/07/23 01:04 Completed UA W/RFX UR CULTURE Stat Lab 10/07/23 01:46 Completed Medication Summary Discontinued Medications Generic Name Dose Route Start Last Admin Trade Name Freq PRN Reason Stop Dose Admin Sodium Chloride 1,000 mls @ 999 mls/hr 10/07/23 00:34 10/07/23 01:10 Sodium Chloride 0.9% 1000 Ml IV 10/07/23 01:34 Not Given .Q1H1M STA Sodium Chloride Confirm 10/07/23 01:09 Sodium Chloride 0.9% 1000 Ml Administered 10/07/23 01:10 Dose 1,000 mls @ ud .ROUTE .STK-MED ONE Lorazepam 1 mg 10/07/23 00:46 10/07/23 01:18 Lorazepam 1 Mg Tablet PO 10/07/23 00:47 0.5 mg STAT ONE Administration Lorazepam Confirm 10/07/23 01:09 Lorazepam 1 Mg Tablet Administered 10/07/23 01:10 Dose 1 mg .ROUTE .STK-MED ONE Lab/Rad Data: Laboratory Result Diagrams 10/07/23 01:04 10/07/23 01:04 Laboratory Results 10/07/23 10/07/23 10/07/23 Range/Units 01:46 01:05 01:04 WBC (4.0-10.5) x10^3/uL RBC (4.1-5.4) x10^6/uL Hgb (12.0-16.0) g/dL Hct (35-47) % MCV (78-100) fL MCH (26-32) pg MCHC (32-36) g/dL RDW (11.5-14.0) % Plt Count (150-450) x10^3/uL MPV (7.5-11.0) fL Gran % (36.0-66.0) % Immature Gran % (Auto) (0.00-0.4) % Nucleat RBC Rel Count (0.00-0.1) % Eos # (Auto) (0-0.5) x10^3/uL Immature Gran # (Auto) (0.00-0.03) x10^3u/L Absolute Lymphs (auto) (1.0-4.6) x10^3/uL Absolute Monos (auto) (0.0-1.3) x10^3/uL Absolute Nucleated RBC (0.00-0.01) x10^3u/L Lymphocytes % (24.0-44.0) % Monocytes % (0.0-12.0) % Eosinophils % (0.00-5.0) % Basophils % (0.0-0.4) % Absolute Granulocytes (1.4-6.9) x10^3/uL Basophils # (0-0.4) x10^3/uL D-Dimer (0.0-0.50) mg/L Sodium (135-145) mmol/L Potassium (3.5-5.1) mmol/L Chloride (98-107) mmol/L Carbon Dioxide (22-30) mmol/L Anion Gap (5-15) MEQ/L BUN (7-17) mg/dL Creatinine (0.52-1.04) mg/dL Estimated GFR ML/MIN Glucose (74-106) mg/dL Lactic Acid (0.4-2.0) Calcium (8.4-10.2) mg/dL Total Bilirubin (0.2-1.3) mg/dL AST (14-36) U/L ALT (0-35) U/L Alkaline Phosphatase (38-126) U/L Troponin I (0.000-0.034) ng/mL NT-Pro-B Natriuret Pep (<300) pg/mL Serum Total Protein (6.3-8.2) g/dL Albumin (3.5-5.0) g/dL Free T4 0.87 (0.78-2.19) ng/dL TSH 3rd Generation (0.47-4.68) mIU/L Serum HCG, Qual (NEGATIVE) Urine Color Yellow (Yellow) Urine Appearance Clear (Clear) Urine pH 7.5 (4.6-8.0) Ur Specific [place] 1.010 (1.005-1.030) Urine Protein Negative (Negative) Urine Glucose (UA) Negative (Negative) mg/dL Urine Ketones Negative (Negative) Urine Blood Negative (Negative) Urine Nitrite Negative (Negative) Urine Bilirubin Negative (Negative) Urine Urobilinogen 0.2 (0.2) mg/dL Ur Leukocyte Esterase Negative (Negative) U Hyaline Cast (Auto) NONE SEEN (0-2) /LPF Urine Microscopic RBC 0-2 (0-5) /HPF Urine Microscopic WBC 0-2 (0-5) /HPF Ur Epithelial Cells None Seen (None Seen) /HPF Urine Bacteria Rare A (None Seen) /HPF Urine Culture Reflexed NO (NO) Influenza Type A Ag NEGATIVE (NEGATIVE) Influenza Type B Ag NEGATIVE (NEGATIVE) RSV (PCR) NEGATIVE (NEGATIVE) SARS-CoV-2 (PCR) NEGATIVE (NEGATIVE) 03/18/24 03/18/24 03/18/24 Range/Units 01:04 01:04 01:04 WBC (4.0-10.5) x10^3/uL RBC (4.1-5.4) x10^6/uL Hgb (12.0-16.0) g/dL Hct (35-47) % MCV (78-100) fL MCH (26-32) pg MCHC (32-36) g/dL RDW (11.5-14.0) % Plt Count (150-450) x10^3/uL MPV (7.5-11.0) fL Gran % (36.0-66.0) % Immature Gran % (Auto) (0.00-0.4) % Nucleat RBC Rel Count (0.00-0.1) % Eos # (Auto) (0-0.5) x10^3/uL Immature Gran # (Auto) (0.00-0.03) x10^3u/L Absolute Lymphs (auto) (1.0-4.6) x10^3/uL Absolute Monos (auto) (0.0-1.3) x10^3/uL Absolute Nucleated RBC (0.00-0.01) x10^3u/L Lymphocytes % (24.0-44.0) % Monocytes % (0.0-12.0) % Eosinophils % (0.00-5.0) % Basophils % (0.0-0.4) % Absolute Granulocytes (1.4-6.9) x10^3/uL Basophils # (0-0.4) x10^3/uL D-Dimer < 0.19 (0.0-0.50) mg/L Sodium (135-145) mmol/L Potassium (3.5-5.1) mmol/L Chloride (98-107) mmol/L Carbon Dioxide (22-30) mmol/L Anion Gap (5-15) MEQ/L BUN (7-17) mg/dL Creatinine (0.52-1.04) mg/dL Estimated GFR ML/MIN Glucose (74-106) mg/dL Lactic Acid (0.4-2.0) Calcium (8.4-10.2) mg/dL Total Bilirubin (0.2-1.3) mg/dL AST (14-36) U/L ALT (0-35) U/L Alkaline Phosphatase (38-126) U/L Troponin I < 0.012 (0.000-0.034) ng/mL NT-Pro-B Natriuret Pep 87.0 (<300) pg/mL Serum Total Protein (6.3-8.2) g/dL Albumin (3.5-5.0) g/dL Free T4 (0.78-2.19) ng/dL TSH 3rd Generation 0.173 L (0.47-4.68) mIU/L Serum HCG, Qual NEGATIVE (NEGATIVE) Urine Color (Yellow) Urine Appearance (Clear) Urine pH (4.6-8.0) Ur Specific [place] (1.005-1.030) Urine Protein (Negative) Urine Glucose (UA) (Negative) mg/dL Urine Ketones (Negative) Urine Blood (Negative) Urine Nitrite (Negative) Urine Bilirubin (Negative) Urine Urobilinogen (0.2) mg/dL Ur Leukocyte Esterase (Negative) U Hyaline Cast (Auto) (0-2) /LPF Urine Microscopic RBC (0-5) /HPF Urine Microscopic WBC (0-5) /HPF Ur Epithelial Cells (None Seen) /HPF Urine Bacteria (None Seen) /HPF Urine Culture Reflexed (NO) Influenza Type A Ag (NEGATIVE) Influenza Type B Ag (NEGATIVE) RSV (PCR) (NEGATIVE) SARS-CoV-2 (PCR) (NEGATIVE) 10/07/23 10/07/23 10/07/23 Range/Units 01:04 01:04 01:00 WBC 10.7 H (4.0-10.5) x10^3/uL RBC 4.73 (4.1-5.4) x10^6/uL Hgb 13.7 (12.0-16.0) g/dL Hct 42.0 (35-47) % MCV 88.8 (78-100) fL MCH 29.0 (26-32) pg MCHC 32.6 (32-36) g/dL RDW 13.2 (11.5-14.0) % Plt Count 273 (150-450) x10^3/uL MPV 11.5 H (7.5-11.0) fL Gran % 74.5 H (36.0-66.0) % Immature Gran % (Auto) 0.4 (0.00-0.4) % Nucleat RBC Rel Count 0.0 (0.00-0.1) % Eos # (Auto) 0.03 (0-0.5) x10^3/uL Immature Gran # (Auto) 0.04 H (0.00-0.03) x10^3u/L Absolute Lymphs (auto) 2.02 (1.0-4.6) x10^3/uL Absolute Monos (auto) 0.60 (0.0-1.3) x10^3/uL Absolute Nucleated RBC 0.00 (0.00-0.01) x10^3u/L Lymphocytes % 18.9 L (24.0-44.0) % Monocytes % 5.6 (0.0-12.0) % Eosinophils % 0.3 (0.00-5.0) % Basophils % 0.3 (0.0-0.4) % Absolute Granulocytes 7.95 H (1.4-6.9) x10^3/uL Basophils # 0.03 (0-0.4) x10^3/uL D-Dimer (0.0-0.50) mg/L Sodium 140 (135-145) mmol/L Potassium 4.2 (3.5-5.1) mmol/L Chloride 108 H (98-107) mmol/L Carbon Dioxide 23 (22-30) mmol/L Anion Gap 12.7 (5-15) MEQ/L BUN 19 H (7-17) mg/dL Creatinine 0.83 (0.52-1.04) mg/dL Estimated GFR 93.6 ML/MIN Glucose 110 H (74-106) mg/dL Lactic Acid 1.2 (0.4-2.0) Calcium 9.4 (8.4-10.2) mg/dL Total Bilirubin 0.20 (0.2-1.3) mg/dL AST 21 (14-36) U/L ALT 24 (0-35) U/L Alkaline Phosphatase 87 (38-126) U/L Troponin I (0.000-0.034) ng/mL NT-Pro-B Natriuret Pep (<300) pg/mL Serum Total Protein 7.5 (6.3-8.2) g/dL Albumin 4.7 (3.5-5.0) g/dL Free T4 (0.78-2.19) ng/dL TSH 3rd Generation (0.47-4.68) mIU/L Serum HCG, Qual (NEGATIVE) Urine Color (Yellow) Urine Appearance (Clear) Urine pH (4.6-8.0) Ur Specific [place] (1.005-1.030) Urine Protein (Negative) Urine Glucose (UA) (Negative) mg/dL Urine Ketones (Negative) Urine Blood (Negative) Urine Nitrite (Negative) Urine Bilirubin (Negative) Urine Urobilinogen (0.2) mg/dL Ur Leukocyte Esterase (Negative) U Hyaline Cast (Auto) (0-2) /LPF Urine Microscopic RBC (0-5) /HPF Urine Microscopic WBC (0-5) /HPF Ur Epithelial Cells (None Seen) /HPF Urine Bacteria (None Seen) /HPF Urine Culture Reflexed (NO) Influenza Type A Ag (NEGATIVE) Influenza Type B Ag (NEGATIVE) RSV (PCR) (NEGATIVE) SARS-CoV-2 (PCR) (NEGATIVE) - Progress Progress: improved, re-examined Progress Note: 10/07/23 04:29 pts symptoms have resolved . We discussed the limitations of the workup and testing performed and that we have not yet discovered the cause of her symptoms and a serious condition could still be evolving undetected even with the negative results we have so far. She and family are most comfortable pursuing the outpt w/u from home rather than further eval in ER or hospital admission and they have the capacity to make this choice. Counseled pt/family regarding: lab results, diagnosis, need for follow-up, rad results Medical Desision Making - Independent Historian Additional History obtained from: Family - Discussion of managment Reviewed:: Test results, Need for additional workup Agreed on:: Treatment plan, need for follow-up - Diagnostic Testing Diagnostic test were ordered, analyzed, and reviewed by me: Yes Radiological Interpretation: Reviewed by me - Risk of complications The pt has a mod risk of morbidity or mortality based on: Need for prescription drug management The pt has a high risk of morbidity or mortality based on: Decision regarding hospitilization or escalation of hosp level of care - Departure Departure Disposition: Home Clinical Impression: anxiety, improved, but of unknown etiolo Condition: Good Critical Care Time: No Referrals: JUSTUS FREGOSO [Primary Care Provider] - Follow up/PCP as directed Instructions: Anxiety, Adult (DC) Additional Instructions: although our tests did not find any serious conditions, there still can be important conditions, including cardiac, vascular, neurologic, still undetected so continuing the workup with your Dr.s is important. Return meantime if any chest pain, shortness of breath, dizziness or other neurologic symptoms, abdominal pain , vomiting, fever, or any other concerns. Keep checking thyroid and ask your Dr. about other thyroid tests as it can take a while to find these conditions. keep monitoring your blood pressure and followup for this as well.
[2023-10-07 00:39] VITALS: TEMP 98.8
[2023-10-07] MEDS ORDERED: Ativan 1 MG ONE (01:09)
[2023-10-07] MEDS ORDERED: Sodium Chloride 0.9% 1000 ML 0 ML ONE (01:09)
[2023-10-07] MEDS: Sodium Chloride 0.9% 1000 ML 1,000 ML IV STA (01:10)
[2023-10-07 01:12] LABS: Absolute Neutrophil Ct (ANC) 7.95 x10^3/uL (1.4-6.9); BASOPHIL % 0.3 % (0.0-0.4); Basophil (Absolute #) 0.03 x10^3/uL (0-0.4); Eosinophil % 0.3 % (0.00-5.0); Eosinophil (Absolute #) 0.03 x10^3/uL (0-0.5); Hemoglobin 13.7 g/dL (12.0-16.0); IMMATURE GRAN # 0.04 x10^3u/L (0.00-0.03); IMMATURE GRAN % 0.4 % (0.00-0.4); Lymphocyte (Absolute #) 2.02 x10^3/uL (1.0-4.6); Lymphocytes % 18.9 % (24.0-44.0); Mean Cell Volume 88.8 fL (78-100); Mean Corpuscular Hgb Concent. 32.6 g/dL (32-36); Mean Platelet Volume 11.5 fL (7.5-11.0); Monocytes % 5.6 % (0.0-12.0); Neutrophil % 74.5 % (36.0-66.0); Platelet Count 273 x10^3/uL (150-450); Red Blood Count 4.73 x10^6/uL (4.1-5.4); Red Cell Distribution Width 13.2 % (11.5-14.0); White Blood Count 10.7 x10^3/uL (4.0-10.5)
[2023-10-07] MEDS: Ativan 1 MG PO ONE (01:18)
[2023-10-07 01:52] LABS: INFLUENZA A NEGATIVE (NEGATIVE); INFLUENZA B NEGATIVE (NEGATIVE); RESPIRATORY SYNCTIAL VIRUS NEGATIVE (NEGATIVE); SARS-CoV-2 Xpert Express NEGATIVE (NEGATIVE)
[2023-10-07 01:55] LABS: Appearance Clear (Clear); Bacteria Rare /HPF (None Seen); Bilirubin Negative (Negative); Blood Negative (Negative); Epithelial Cells None Seen /HPF (None Seen); Glucose, Urine Negative (Negative); Hyaline Casts NONE SEEN /LPF (0-2); Ketones Negative (Negative); Leukocyte Esterase Negative (Negative); Nitrite Negative (Negative); Ph 7.5 (4.6-8.0); Protein,Urine Dip Negative (Negative); RBC 0-2 /HPF (0-5); Urobilinogen 0.2 mg/dL (0.2); WBC 0-2 /HPF (0-5)
[2023-10-07 02:02] LABS: TROPONIN < 0.012 ng/mL (0.000-0.034); TSH, 3RD Generation 0.173 mIU/L (0.47-4.68)
[2023-10-07 02:13] LABS: HCG SERUM TEST NEGATIVE (NEGATIVE)
[2023-10-07 02:14] LABS: ADD URINE CULTURE? NO (NO)
[2023-10-07 02:47] LABS: ALBUMIN 4.7 g/dL (3.5-5.0); ANION GAP 12.7 MEQ/L (5-15); BILIRUBIN,TOTAL 0.2 mg/dL (0.2-1.3); Calcium 9.4 mg/dL (8.4-10.2); Creatinine 1 0.83 mg/dL (0.52-1.04); EST GLOMERULAR FILTRATION RATE 93.6 ML/MIN; Potassium 4.2 mmol/L (3.5-5.1); Total Protein 7.5 g/dL (6.3-8.2)
[2023-10-07 04:39] VITALS: BP 138/85; PULSE 72; RESP 15
[2023-10-07 04:43] VITALS: O2SAT 99
--- NOTE | 2023-10-07 08:48 | XRAY ---
Indication: Anxiety. Atypical chest pain. Comparison: August 28, 2021 Portable chest again demonstrates normal heart and lungs. Bony thorax intact. No new/acute findings.
== END 2023-10-07 04:57 | disposition home or self-care (01) ==
LOC: ED 22:31
DX: F41.9 Anxiety disorder, unspecified (principal); R68.83 Chills (without fever); R43.9 Unspecified disturbances of smell and taste
CPT/HCPCS: 0241U; 36000; 36415; 71045; 80053; 81001; 83605; 83880; 84439; 84443; 84484; 84703; 85025; 85379; 93005; 93041; 94760; 99284; A9270-GY

== ENCOUNTER 2023-11-02 13:48 | Emergency (ER) | payer OTHER ==
--- NOTE | 2023-11-02 13:57 | ERPHSYRPT ---
- History of Present Illness Time Seen by Provider: 11/02/23 13:57 Source: patient Exam Limitations: no limitations Physician History: 38yo f presents for nausea, chest discomfort, acute anxiety that started this AM while at work. Pt was recently diagnosed w/ afib in 09/14, had her medications altered last week and has felt "off" since. Pt reports she has been nauseous and fatigued, feeling a lot of palpitations. Pt reports feeling flush, having redness in her cheeks as well. Pt currently denies any cp, soa, abdominal pain, CASTRO, blurry vision. Pt has significant hx of anxiety but does not take daily anxiolytic. Timing/Duration: today Severity: moderate Associated Symptoms: nausea, diaphoresis, malaise, No vomiting, No shortness of breath, No chills, No chest pain, No fever, No headaches, No syncope, No seizure, No weakness Allergies/Adverse Reactions: azatadine maleate [From Rynatan] Allergy (Intermediate, Verified 11/02/23 14:02) rash hives buspirone HCl [From BuSpar] Allergy (Mild, Verified 11/02/23 14:02) rash hives cefaclor [From Ceclor] Allergy (Mild, Verified 11/02/23 14:02) rash hives latex [Latex] Allergy (Mild, Verified 11/02/23 14:02) redness and swollen chlorpheniramine [From Rynatan] Allergy (Unknown, Verified 11/02/23 14:02) chlorpheniramine tannate [From Rynatan] Allergy (Unknown, Verified 11/02/23 14:02) Influenza Virus Vaccines Allergy (Unknown, Verified 11/02/23 14:02) phenylephrine tannate [From Rynatan] Allergy (Unknown, Verified 11/02/23 14:02) pseudoephedrine sulfate [From Rynatan] Allergy (Unknown, Verified 11/02/23 14:02) pyrilamine tannate [From Rynatan] Allergy (Unknown, Verified 11/02/23 14:02) venlafaxine [From Effexor] Allergy (Verified 11/02/23 14:02) Home Medications: ALPRAZolam 0.25 MG [xanAX 0.25 MG] 0.25 mg PO Q6H 11/02/23 [History] Aspirin EC 81 mg [Ecotrin 81 mg] 81 mg PO DAILY 11/02/23 [History] Metoprolol Succinate 25 mg Xl* [Toprol-Xl 25MG Tablets] 12.5 mg PO DAILY 11/02/23 [History] Propafenone HCl [Propafenone HCl ER] 225 mg PO BID 11/02/23 [History] Ranolazine 500 MG [Ranexa 500 MG] 500 mg PO BID 11/02/23 [History] Hx Tetanus, Diphtheria Vaccination/Date Given: Yes Hx Influenza Vaccination/Date Given: No (allergic) Hx Pneumococcal Vaccination/Date Given: No - Review of Systems Constitutional: Malaise Respiratory: No Symptoms Cardiac: Palpitations, No Chest Pain, No Syncope Abdominal/Gastrointestinal: Nausea, No Abdominal Pain, No Vomiting, No Diarrhea Genitourinary Symptoms: No Symptoms Psychological: Anxiety - Past Medical History Pertinent Past Medical History: Yes Neurological History: Migraines ENT History: No Pertinent History Cardiac History: Arrhythmia Respiratory History: No Pertinent History Endocrine Medical History: No Pertinent History Musculoskeletal History: Degenerative Disk Disease, Fibromyalgia, Osteoarthritis, Other GI Medical History: Gallbladder Disease History: No Pertinent History Psycho-Social History: Anxiety, Depression, Panic Disorder, Other Female Reproductive Disorders: No Pertinent History Other Medical History: LEVOSCOLIOSIS PER XRAY LOWER THORACIC WITH MILD WEDGING T11-12. - Past Surgical History Past Surgical History: Yes Neuro Surgical History: No Pertinent History Cardiac: No Pertinent History Respiratory: No Pertinent History Gastrointestinal: Cholecystectomy Genitourinary: No Pertinent History Musculoskeletal: Orthopedic Surgery Female Surgical History: Hysterectomy, Dilation & Curettage, Section, Tubal Ligation, Other Other Surgical History: 3 LEEP, Lt knee surgery 2011, bilat foot surgeries - Social History Smoking Status: Former smoker How long have you smoked: 27 yrs Exposure to second hand smoke: Yes Drug Use: none Patient Lives Alone: No - Nursing Vital Signs Nursing Vital Signs: Initial Vital Signs Temperature 97.7 F 11/02/23 14:04 Pulse Rate 104 H 11/02/23 14:04 Respiratory Rate 20 11/02/23 14:04 Blood Pressure 145/86 11/02/23 14:04 O2 Sat by Pulse Oximetry 100 11/02/23 14:04 Pain Scale Pain Intensity 0 - Physical Exam General Appearance: no apparent distress, anxiety Respiratory Exam: normal breath sounds, lungs clear, airway intact, No chest tenderness, No respiratory distress Cardiovascular Exam: regular rate/rhythm, normal heart sounds, normal peripheral pulses Gastrointestinal/Abdomen Exam: soft, No tenderness, No distention Neurologic Exam: alert, oriented x 3, cooperative Skin Exam: normal color, warm, dry SpO2 Interpretation: normal SpO2: 99 O2 Delivery: Room Air - Course EKG Interpreted by Me: RATE (87), Sinus Rhythm, NORMAL ST-T, Other (qtcb 418, W[place] 122, not suggestive of ischemia) Ordered Tests: Active Orders 24 hr Category Date Time Status EKG-ER Only STAT Care 11/02/23 14:41 Active CHEST 1 VIEW (PORTABLE) Stat Exams 11/02/23 14:42 Taken CBC W DIFF Stat Lab 11/02/23 14:02 Completed CMP Stat Lab 11/02/23 14:02 Completed HCG QUALITATIVE, SERUM Stat Lab 11/02/23 14:02 Completed NT PRO BNPII Stat Lab 11/02/23 14:02 Completed TROPONIN Q4H Lab 11/02/23 14:02 Completed TROPONIN Q4H Lab 11/02/23 17:10 Completed TROPONIN Q4H Lab 11/02/23 22:45 Ordered UA W/RFX UR CULTURE Stat Lab 11/02/23 14:46 Completed Urine Triage Profile Stat Lab 11/02/23 14:46 Completed Medication Summary Generic Name Dose Route Start Last Admin Trade Name Freq PRN Reason Stop Dose Admin Lorazepam 0.5 mg 11/02/23 16:30 Lorazepam 2 Mg/1 Ml 2 Mg Vial IV 12/02/23 16:29 1XONLY PRN ANXIETY Discontinued Medications Generic Name Dose Route Start Last Admin Trade Name Freq PRN Reason Stop Dose Admin Sodium Chloride 1,000 mls @ 999 mls/hr 11/02/23 14:41 11/02/23 17:12 Sodium Chloride 0.9% 1000 Ml IV 11/02/23 15:41 Infused .Q1H1M STA Infusion Sodium Chloride Confirm 11/02/23 14:53 Sodium Chloride 0.9% 1000 Ml Administered 11/02/23 14:54 Dose 1,000 mls @ ud .ROUTE .STK-MED ONE Lorazepam 0.5 mg 11/02/23 15:09 11/02/23 15:42 Lorazepam 2 Mg/1 Ml 2 Mg Vial IV 11/02/23 15:10 0.5 mg STAT ONE Administration Lorazepam Confirm 11/02/23 15:41 Lorazepam 2 Mg/1 Ml 2 Mg Vial Administered 11/02/23 15:42 Dose 2 mg .ROUTE .STK-MED ONE Lab/Rad Data: Laboratory Result Diagrams 11/02/23 14:02 11/02/23 14:02 Laboratory Results 11/02/23 11/02/23 11/02/23 Range/Units 17:10 14:46 14:46 WBC (4.0-10.5) x10^3/uL RBC (4.1-5.4) x10^6/uL Hgb (12.0-16.0) g/dL Hct (35-47) % MCV (78-100) fL MCH (26-32) pg MCHC (32-36) g/dL RDW (11.5-14.0) % Plt Count (150-450) x10^3/uL MPV (7.5-11.0) fL Gran % (36.0-66.0) % Immature Gran % (Auto) (0.00-0.4) % Nucleat RBC Rel Count (0.00-0.1) % Eos # (Auto) (0-0.5) x10^3/uL Immature Gran # (Auto) (0.00-0.03) x10^3u/L Absolute Lymphs (auto) (1.0-4.6) x10^3/uL Absolute Monos (auto) (0.0-1.3) x10^3/uL Absolute Nucleated RBC (0.00-0.01) x10^3u/L Lymphocytes % (24.0-44.0) % Monocytes % (0.0-12.0) % Eosinophils % (0.00-5.0) % Basophils % (0.0-0.4) % Absolute Granulocytes (1.4-6.9) x10^3/uL Basophils # (0-0.4) x10^3/uL Sodium (135-145) mmol/L Potassium (3.5-5.1) mmol/L Chloride (98-107) mmol/L Carbon Dioxide (22-30) mmol/L Anion Gap (5-15) MEQ/L BUN (7-17) mg/dL Creatinine (0.52-1.04) mg/dL Estimated GFR ML/MIN Glucose (74-106) mg/dL Calcium (8.4-10.2) mg/dL Total Bilirubin (0.2-1.3) mg/dL AST (14-36) U/L ALT (0-35) U/L Alkaline Phosphatase (38-126) U/L Troponin I < 0.012 (0.000-0.033) ng/mL NT-Pro-B Natriuret Pep (<300) pg/mL Serum Total Protein (6.3-8.2) g/dL Albumin (3.5-5.0) g/dL Serum HCG, Qual (NEGATIVE) Urine Color Yellow (Yellow) Urine Appearance Clear (Clear) Urine pH 8.0 (4.6-8.0) Ur Specific Miller <=1.005 (1.005-1.030) Urine Protein Negative (Negative) Urine Glucose (UA) Negative (Negative) mg/dL Urine Ketones Negative (Negative) Urine Blood Negative (Negative) Urine Nitrite Negative (Negative) Urine Bilirubin Negative (Negative) Urine Urobilinogen 0.2 (0.2) mg/dL Ur Leukocyte Esterase Negative (Negative) U Hyaline Cast (Auto) NONE SEEN (0-2) /LPF Urine Microscopic RBC 0-2 (0-5) /HPF Urine Microscopic WBC 0-2 (0-5) /HPF Ur Epithelial Cells None Seen (None Seen) /HPF Urine Bacteria None Seen (None Seen) /HPF Urine Culture Reflexed NO (NO) Urine Opiates Level NEGATIVE (NEGATIVE) Ur Methadone NEGATIVE (NEGATIVE) Urine Barbiturates NEGATIVE (NEGATIVE) Ur Phencyclidine (PCP) NEGATIVE (NEGATIVE) Urine Amphetamine NEGATIVE (NEGATIVE) U Benzodiazepine Level NEGATIVE (NEGATIVE) Urine Cocaine NEGATIVE (NEGATIVE) Urine Marijuana (THC) NEGATIVE (NEGATIVE) 11/02/23 11/02/23 11/02/23 Range/Units 14:02 14:02 14:02 WBC (4.0-10.5) x10^3/uL RBC (4.1-5.4) x10^6/uL Hgb (12.0-16.0) g/dL Hct (35-47) % MCV (78-100) fL MCH (26-32) pg MCHC (32-36) g/dL RDW (11.5-14.0) % Plt Count (150-450) x10^3/uL MPV (7.5-11.0) fL Gran % (36.0-66.0) % Immature Gran % (Auto) (0.00-0.4) % Nucleat RBC Rel Count (0.00-0.1) % Eos # (Auto) (0-0.5) x10^3/uL Immature Gran # (Auto) (0.00-0.03) x10^3u/L Absolute Lymphs (auto) (1.0-4.6) x10^3/uL Absolute Monos (auto) (0.0-1.3) x10^3/uL Absolute Nucleated RBC (0.00-0.01) x10^3u/L Lymphocytes % (24.0-44.0) % Monocytes % (0.0-12.0) % Eosinophils % (0.00-5.0) % Basophils % (0.0-0.4) % Absolute Granulocytes (1.4-6.9) x10^3/uL Basophils # (0-0.4) x10^3/uL Sodium 139 (135-145) mmol/L Potassium 3.6 (3.5-5.1) mmol/L Chloride 107 (98-107) mmol/L Carbon Dioxide 25 (22-30) mmol/L Anion Gap 10.8 (5-15) MEQ/L BUN 9 (7-17) mg/dL Creatinine 0.74 (0.52-1.04) mg/dL Estimated GFR 107.5 ML/MIN Glucose 118 H (74-106) mg/dL Calcium 10.0 (8.4-10.2) mg/dL Total Bilirubin 0.40 (0.2-1.3) mg/dL AST 25 (14-36) U/L ALT 27 (0-35) U/L Alkaline Phosphatase 76 (38-126) U/L Troponin I < 0.012 (0.000-0.033) ng/mL NT-Pro-B Natriuret Pep 51.3 (<300) pg/mL Serum Total Protein 7.7 (6.3-8.2) g/dL Albumin 4.5 (3.5-5.0) g/dL Serum HCG, Qual NEGATIVE (NEGATIVE) Urine Color (Yellow) Urine Appearance (Clear) Urine pH (4.6-8.0) Ur Specific Miller (1.005-1.030) Urine Protein (Negative) Urine Glucose (UA) (Negative) mg/dL Urine Ketones (Negative) Urine Blood (Negative) Urine Nitrite (Negative) Urine Bilirubin (Negative) Urine Urobilinogen (0.2) mg/dL Ur Leukocyte Esterase (Negative) U Hyaline Cast (Auto) (0-2) /LPF Urine Microscopic RBC (0-5) /HPF Urine Microscopic WBC (0-5) /HPF Ur Epithelial Cells (None Seen) /HPF Urine Bacteria (None Seen) /HPF Urine Culture Reflexed (NO) Urine Opiates Level (NEGATIVE) Ur Methadone (NEGATIVE) Urine Barbiturates (NEGATIVE) Ur Phencyclidine (PCP) (NEGATIVE) Urine Amphetamine (NEGATIVE) U Benzodiazepine Level (NEGATIVE) Urine Cocaine (NEGATIVE) Urine Marijuana (THC) (NEGATIVE) 11/02/23 Range/Units 14:02 WBC 9.1 (4.0-10.5) x10^3/uL RBC 4.81 (4.1-5.4) x10^6/uL Hgb 14.1 (12.0-16.0) g/dL Hct 42.1 (35-47) % MCV 87.5 (78-100) fL MCH 29.3 (26-32) pg MCHC 33.5 (32-36) g/dL RDW 13.4 (11.5-14.0) % Plt Count 271 (150-450) x10^3/uL MPV 11.2 H (7.5-11.0) fL Gran % 68.8 H (36.0-66.0) % Immature Gran % (Auto) 0.2 (0.00-0.4) % Nucleat RBC Rel Count 0.0 (0.00-0.1) % Eos # (Auto) 0.03 (0-0.5) x10^3/uL Immature Gran # (Auto) 0.02 (0.00-0.03) x10^3u/L Absolute Lymphs (auto) 2.23 (1.0-4.6) x10^3/uL Absolute Monos (auto) 0.54 (0.0-1.3) x10^3/uL Absolute Nucleated RBC 0.00 (0.00-0.01) x10^3u/L Lymphocytes % 24.6 (24.0-44.0) % Monocytes % 5.9 (0.0-12.0) % Eosinophils % 0.3 (0.00-5.0) % Basophils % 0.2 (0.0-0.4) % Absolute Granulocytes 6.24 (1.4-6.9) x10^3/uL Basophils # 0.02 (0-0.4) x10^3/uL Sodium (135-145) mmol/L Potassium (3.5-5.1) mmol/L Chloride (98-107) mmol/L Carbon Dioxide (22-30) mmol/L Anion Gap (5-15) MEQ/L BUN (7-17) mg/dL Creatinine (0.52-1.04) mg/dL Estimated GFR ML/MIN Glucose (74-106) mg/dL Calcium (8.4-10.2) mg/dL Total Bilirubin (0.2-1.3) mg/dL AST (14-36) U/L ALT (0-35) U/L Alkaline Phosphatase (38-126) U/L Troponin I (0.000-0.033) ng/mL NT-Pro-B Natriuret Pep (<300) pg/mL Serum Total Protein (6.3-8.2) g/dL Albumin (3.5-5.0) g/dL Serum HCG, Qual (NEGATIVE) Urine Color (Yellow) Urine Appearance (Clear) Urine pH (4.6-8.0) Ur Specific Miller (1.005-1.030) Urine Protein (Negative) Urine Glucose (UA) (Negative) mg/dL Urine Ketones (Negative) Urine Blood (Negative) Urine Nitrite (Negative) Urine Bilirubin (Negative) Urine Urobilinogen (0.2) mg/dL Ur Leukocyte Esterase (Negative) U Hyaline Cast (Auto) (0-2) /LPF Urine Microscopic RBC (0-5) /HPF Urine Microscopic WBC (0-5) /HPF Ur Epithelial Cells (None Seen) /HPF Urine Bacteria (None Seen) /HPF Urine Culture Reflexed (NO) Urine Opiates Level (NEGATIVE) Ur Methadone (NEGATIVE) Urine Barbiturates (NEGATIVE) Ur Phencyclidine (PCP) (NEGATIVE) Urine Amphetamine (NEGATIVE) U Benzodiazepine Level (NEGATIVE) Urine Cocaine (NEGATIVE) Urine Marijuana (THC) (NEGATIVE) - Progress Progress: improved Progress Note: 11/02/23 18:53 pt sx significantly improved w/ dose of ativan and rest ekg normal sinus rhythm labs largely unremarkable trops negative x 2 plan for dc home w/ close pcp and cardiology f/u (Dr Kiser, Dr Naidu) recommended patient discuss daily anxiolytic with her PCP Recommend patient discuss current cardiology medications w/ on-call doc/nurse at [facility] return to ED if: develop chest pain, develop shortness of breath, develop vision changes, develop CASTRO Medical Desision Making - Diagnostic Testing Diagnostic test were ordered, analyzed, and reviewed by me: No - Risk of complications Minimal Risk: Minimal risk of morbidity - Departure Departure Disposition: Home Clinical Impression: Anxiety, Nausea Condition: Stable Critical Care Time: No Referrals: JUSTUS NAIDU [Primary Care Provider] - Follow up/PCP as directed Additional Instructions: plan for dc home w/ close pcp and cardiology f/u (Dr Kiser, Dr Naidu) recommended patient discuss daily anxiolytic with her PCP Recommend patient discuss current cardiology medications w/ on-call doc/nurse at [facility] return to ED if: develop chest pain, develop shortness of breath, develop vision changes, develop CASTRO
[2023-11-02 14:20] VITALS: TEMP 97.7
[2023-11-02 14:53] LABS: Absolute Neutrophil Ct (ANC) 6.24 x10^3/uL (1.4-6.9); BASOPHIL % 0.2 % (0.0-0.4); Basophil (Absolute #) 0.02 x10^3/uL (0-0.4); Eosinophil % 0.3 % (0.00-5.0); Eosinophil (Absolute #) 0.03 x10^3/uL (0-0.5); Hematocrit 42.1 % (35-47); Hemoglobin 14.1 g/dL (12.0-16.0); IMMATURE GRAN # 0.02 x10^3u/L (0.00-0.03); IMMATURE GRAN % 0.2 % (0.00-0.4); Lymphocyte (Absolute #) 2.23 x10^3/uL (1.0-4.6); Lymphocytes % 24.6 % (24.0-44.0); Mean Cell Volume 87.5 fL (78-100); Mean Corpuscular Hemoglobin 29.3 pg (26-32); Mean Corpuscular Hgb Concent. 33.5 g/dL (32-36); Mean Platelet Volume 11.2 fL (7.5-11.0); Monocyte (Absolute #) 0.54 x10^3/uL (0.0-1.3); Monocytes % 5.9 % (0.0-12.0); Neutrophil % 68.8 % (36.0-66.0); Platelet Count 271 x10^3/uL (150-450); Red Blood Count 4.81 x10^6/uL (4.1-5.4); Red Cell Distribution Width 13.4 % (11.5-14.0); White Blood Count 9.1 x10^3/uL (4.0-10.5)
[2023-11-02] MEDS ORDERED: Sodium Chloride 0.9% 1000 ML 1,000 ML ONE (14:53)
[2023-11-02] MEDS: Sodium Chloride 0.9% 1000 ML 1,000 ML IV STA (14:55)
[2023-11-02 15:00] LABS: ADD URINE CULTURE? NO (NO); Appearance Clear (Clear); Bacteria None Seen /HPF (None Seen); Bilirubin Negative (Negative); Blood Negative (Negative); Epithelial Cells None Seen /HPF (None Seen); Glucose, Urine Negative (Negative); Hyaline Casts NONE SEEN /LPF (0-2); Ketones Negative (Negative); Leukocyte Esterase Negative (Negative); Nitrite Negative (Negative); Protein,Urine Dip Negative (Negative); RBC 0-2 /HPF (0-5); Specific Gravity <=1.005 (1.005-1.030); Urobilinogen 0.2 mg/dL (0.2); WBC 0-2 /HPF (0-5)
[2023-11-02 15:08] LABS: ALBUMIN 4.5 g/dL (3.5-5.0); ANION GAP 10.8 MEQ/L (5-15); BILIRUBIN,TOTAL 0.4 mg/dL (0.2-1.3); Creatinine 1 0.74 mg/dL (0.52-1.04); EST GLOMERULAR FILTRATION RATE 107.5 ML/MIN; Potassium 3.6 mmol/L (3.5-5.1); Total Protein 7.7 g/dL (6.3-8.2)
[2023-11-02 15:19] LABS: HCG SERUM TEST NEGATIVE (NEGATIVE)
[2023-11-02 15:20] LABS: NT PRO BNPII 51.3 pg/mL (<300); TROPONIN < 0.012 ng/mL (0.000-0.033)
[2023-11-02 15:36] LABS: Amphetamine,Urine NEGATIVE (NEGATIVE); Barbiturate,Urine NEGATIVE (NEGATIVE); Benzodiazepine,Urine NEGATIVE (NEGATIVE); Cocaine,Urine NEGATIVE (NEGATIVE); Methadone,Urine NEGATIVE (NEGATIVE); Opiate,Urine NEGATIVE (NEGATIVE); PCP,Urine NEGATIVE (NEGATIVE); THC,Urine NEGATIVE (NEGATIVE)
[2023-11-02] MEDS ORDERED: Ativan 2 MG/1 ML VIAL ONE (15:41)
[2023-11-02] MEDS: Ativan 2 MG/1 ML VIAL IV ONE (15:42)
[2023-11-02] MEDS ORDERED: Ativan 2 MG/1 ML VIAL IV PRN (16:30)
[2023-11-02 17:14] VITALS: O2SAT 99
[2023-11-02 18:08] VITALS: BP 125/75; PULSE 82; RESP 14
--- NOTE | 2023-11-02 19:52 | XRAY ---
Indication: Tachycardia. Comparison: October 07, 2023 Portable chest remains inflated and clear. Heart is not enlarged. Bony thorax intact. No new/acute findings.
== END 2023-11-02 19:04 | disposition home or self-care (01) ==
LOC: ED 13:48
DX: F41.9 Anxiety disorder, unspecified (principal); R11.0 Nausea; R07.9 Chest pain, unspecified; R53.83 Other fatigue; Z79.899 Other long term (current) drug therapy
CPT/HCPCS: 36415; 71045; 80053; 80307; 81001; 83880; 84484; 84703; 85025; 93005; 96360; 96374; 99284; J2060